=== PATIENT | female | born 1935 | race Caucasian/White ===

== ENCOUNTER → 2018-06-30 21:05 | Inpatient (IN) | payer MEDICARE, OTHER ==
[~2018-06-30 21:05] MED LIST: ACET-2154 PO; ALBU1.25 NEB; ALBU2.5V13 NEB; ALBU2.5V7 NEB; ALEN70TA3 PO; APIX2.5T PO; DICY10CA13 PO; DICY10CA21 PO; DIGO125T5 PO; DOCU-141 PO; FERR325T28 PO; FURO20TA4 PO; HYDR-3326 PO; IPRA0.2S48 NEB; IPRA0.2S6 NEB; LICO1POW2 PO; LINE600T PO; MAG355OR18 PO; MAG360OR83 PO; METO50TA16 PO; MORP1SYR2 IV; NYST5ORA PO; ONDA4AMP IVP; PANT40TA2 PO; PANT40VI IV; SENN-129 PO; SPIR25TA PO; SUCR1TAB PO; Sennosides/Docusate Sodium PO
== END | disposition short-term general hospital (02) | DRG 204 ==
PROVIDERS: ADMIT Physical Medicine & Rehabilitation Pain Medicine; ATTEND Physical Medicine & Rehabilitation Pain Medicine
DX: R06.03 Acute respiratory distress (principal)

== ENCOUNTER 2018-06-30 21:19 | Inpatient (IN) | payer MEDICARE, OTHER ==
[~2018-06-30] VITALS: Ht 147.3 cm; Wt 44.5 kg
--- NOTE | 2018-06-30 21:00 | NUR ---
Pt transferred from rehab with shortness of breath, placed on BIPAP with ordered settings of 12/5, Rate-14, FIO2-100%. In-line nebulizer treatment given as ordered. Tx tolerated well. Pt tolerating BIPAP settings well. Placed on continuos pulse ox. SpO2-99%. BIPAP alarm parameters checked, on and audible. Bag/valve/mask at bedside. Proper isolation protection equipment used.
--- NOTE | 2018-06-30 21:00 | NUR ---
nsg: Pt received fr acute rehab in respiratory distress. on non rebreather mask. lungs sound diminished. pt is awake, alert, and hyperventilating. received orders fr Dexter Tai NP. put on tele, NSR. family at the bedside. cont to monitor. pt has right upper quadrant drain, per son, the drainage is VRE. on contact isolation. RT, supervisor orchard, charge nurse, Zaire MONDRAGON at the bedside.
[~2018-06-30 21:19] MED LIST changes: -ACET-2154 PO; -ALBU1.25 NEB; -ALBU2.5V13 NEB; -ALBU2.5V7 NEB; -ALEN70TA3 PO; -APIX2.5T PO; -DICY10CA13 PO; -DICY10CA21 PO; -DIGO125T5 PO; -DOCU-141 PO; -FERR325T28 PO; -FURO20TA4 PO; +FUROSEMIDE 40 MG/4 ML VIAL ONE; -HYDR-3326 PO; -IPRA0.2S48 NEB; -IPRA0.2S6 NEB; -LICO1POW2 PO; -LINE600T PO; -MAG355OR18 PO; -MAG360OR83 PO; -METO50TA16 PO; -MORP1SYR2 IV; +MORPHINE SULFATE 4 MG/1 ML DISP.SYRIN ONE; -NYST5ORA PO; -ONDA4AMP IVP; -PANT40TA2 PO; -PANT40VI IV; -SENN-129 PO; -SPIR25TA PO; -SUCR1TAB PO; -Sennosides/Docusate Sodium PO
[2018-06-30] MEDS ORDERED: FUROSEMIDE 40 MG/4 ML VIAL IV ONE ×2 (21:45→22:15)
[2018-06-30] MEDS ORDERED: MORPHINE SULFATE 4 MG/1 ML DISP.SYRIN IV ONE (21:45)
[2018-06-30 21:52] VITALS: BP 158/90
[2018-06-30] MEDS ORDERED: MORPHINE SULFATE 4 MG/1 ML DISP.SYRIN IV STA (22:04)
[2018-06-30] MEDS ORDERED: IPRATROPIUM BROMIDE 0.5 MG/2.5 ML NEBU NEB SCH (22:15)
[2018-06-30] MEDS ORDERED: ALBUTEROL SULFATE 2.5 MG/3 ML NEBU NEB SCH (22:15)
--- NOTE | 2018-06-30 22:15 | NUR ---
nsg: attempted to insert f/c 2x, however, pt has thick, white discharge that enters the lumen. notified ASSEMBLY LINE UPHOLSTERER.
[2018-06-30] MEDS ORDERED: Z GUARD REMEDY PASTE 57 GM TUBE TOP PRN (23:00)
[2018-06-30] MEDS ORDERED: MORPHINE SULFATE 4 MG/1 ML DISP.SYRIN IV PRN (23:00)
[2018-06-30] MEDS ORDERED: MAGNESIUM HYDROXIDE 30 ML LIQUID UDC PO PRN (23:00)
[2018-06-30] MEDS ORDERED: ONDANSETRON 4 MG/2 ML VIAL IV PRN (23:00)
--- NOTE | 2018-06-30 23:15 | NUR ---
nsg: per RT, unable to obtain ABG bec site is limited only to right arm due to having dvt on left shoulder. however, RT unable to palpate strong pulse. notified GIANCARLO Tai. pt is stable, no distress noted.
[2018-06-30] MEDS: ONDANSETRON 4 MG/2 ML VIAL IV PRN (23:38)
--- NOTE | 2018-06-30 23:38 | NUR ---
nsg: pt awake, on bipap with 50% FIO2, O2 saturation is 97%. pt vomitted. medicated with zofran ivp. cont to monitor.
[2018-07-01] VITALS (12 sets, daily range): BP systolic 81–125; BP diastolic 39–74
[2018-07-01] MEDS ORDERED: PIPERACILLIN/TAZOBACTAM/D5W 3.375 G in PREMIXED 1 EACH IV SCH (01:00)
[2018-07-01] MEDS ORDERED: PIPERACILLIN/TAZO 2.25 GM VIAL ONE (01:01)
--- NOTE | 2018-07-01 03:00 | NUR ---
BIPAP settings changed to 10/5, due to Patient multiple episodes of throwing up. Changes tolerated well. No respiratory distress noted. SpO2-97%. Will continue to monitor.
[2018-07-01] MEDS: ALBUTEROL SULFATE 2.5 MG/3 ML NEBU NEB SCH ×6 (03:05→22:56)
[2018-07-01] MEDS: IPRATROPIUM BROMIDE 0.5 MG/2.5 ML NEBU NEB SCH ×6 (03:05→22:56)
[2018-07-01] MEDS ORDERED: ONDA4AMP IVP (03:21)
[2018-07-01] MEDS ORDERED: LINE600T PO (03:21)
[2018-07-01] MEDS ORDERED: ALBU1.25 NEB (03:21)
[2018-07-01] MEDS ORDERED: DICY10CA13 PO (03:21)
[2018-07-01] MEDS ORDERED: MAG360OR83 PO (03:21)
[2018-07-01] MEDS ORDERED: SPIR25TA PO (03:21)
[2018-07-01] MEDS ORDERED: SUCR1TAB PO (03:21)
[2018-07-01] MEDS ORDERED: PANT40VI IV (03:21)
[2018-07-01] MEDS ORDERED: ALBU2.5V13 NEB (03:21)
[2018-07-01] MEDS ORDERED: APIX2.5T PO (03:21)
[2018-07-01] MEDS ORDERED: ALEN70TA3 PO (03:21)
[2018-07-01] MEDS ORDERED: DOCU-141 PO (03:21)
[2018-07-01] MEDS ORDERED: IPRA0.2S48 NEB (03:21)
[2018-07-01] MEDS ORDERED: METO50TA16 PO (03:21)
[2018-07-01] MEDS ORDERED: NYST5ORA PO (03:21)
[2018-07-01] MEDS ORDERED: MORP1SYR2 IV (03:21)
[2018-07-01] MEDS ORDERED: ACET-2154 PO (03:21)
[2018-07-01] MEDS ORDERED: HYDR-3326 PO (03:21)
[2018-07-01] MEDS ORDERED: FERR325T28 PO (03:21)
--- NOTE | 2018-07-01 05:00 | NUR ---
nsg: pt comfortable sleeping. on bipap with FIO2 of 50%, O2 saturation is 97%. cont to monitor.
[2018-07-01] MEDS ORDERED: PIPERACILLIN/TAZOBACTAM/D5W 2.25 G in PREMIXED 1 EACH IV SCH (06:00)
[2018-07-01 06:48] LABS: BASOPHILS # (AUTO) 0.1 K/uL (0.0-8.0); BASOPHILS % (AUTO) 0.6 % (0.0-2.0); HEMATOCRIT 33.3 % (31.2-41.9); HEMOGLOBIN 10.9 g/dL (10.9-14.3); LYMPHOCYTES # (AUTO) 0.9 K/uL (20.0-40.0); LYMPHOCYTES % (AUTO) 8.3 % (20.5-51.5); MEAN CORPUSCULAR HEMOGLOBIN 34.3 uug (24.7-32.8); MEAN CORPUSCULAR HGB CONC 33 g/dL (32.3-35.6); MEAN CORPUSCULAR VOLUME 104.1 fL (75.5-95.3); MONOCYTES # (AUTO) 0.7 K/uL (2.0-10.0); MONOCYTES % (AUTO) 6.4 % (0.0-11.0); NEUTROPHILS # (AUTO) 9.3 K/uL (1.8-8.9); NEUTROPHILS % (AUTO) 84.7 % (38.5-71.5); PLATELET COUNT (AUTO) 253 K/uL (179-408); RED BLOOD CELL COUNT(AUTO) 3.19 MIL/uL (3.63-4.92)
--- NOTE | 2018-07-01 06:55 | NUR ---
nsg: changed picc line dressing. inserted f/c 14 fr.
[2018-07-01 07:11] LABS: CARBON DIOXIDE 22 mmol/L (21-32); CHLORIDE 104 mmol/L (98-107); CREATININE 1.8 mg/dL (0.6-1.3); GLUCOSE 125 mg/dL (74-106); PHOSPHOROUS 4.6 mg/dL (2.5-4.9); POTASSIUM 4.7 mmol/L (3.5-5.1); UREA NITROGEN, BLOOD 30 mg/dL (7-18)
--- NOTE | 2018-07-01 07:41 | NUR ---
PT RECEIVED ON BIPAP ON SETTINGS OF IPAP 10, EPAP 5, RATE 14, AND 40% FIO2. PT IS TOLERATING BIPAP MASK AND SETTINGS WELL. IN-LINE TX TOLERATED WELL, NO ADVERSE REACTION NOTED. POST ABG RESULTS, PT PLACED ON N/C 3LPM. PT IS LAYING COMFORTABLY, AWAKE AND ALERT. NO RESP. DISTRESS NOTED AT THIS TIME. RN IS NOTIFIED AND AWARE OF CHANGES. CONT. POX, AND BIPAP AT BEDSIDE. WILL CONTINUE TO MONITOR.
[2018-07-01] MEDS ORDERED: ACETAMINOPHEN 325 MG TABLET PO PRN (07:45)
[2018-07-01] MEDS ORDERED: MAG HYDROX/AL HYDROX/SIMETH 30 ML LIQUID UDC PO PRN (07:45)
[2018-07-01 08:08] LABS: ABG BASE EXCESS -4.3 mmol/L; ABG HCO3 20.3 mmol/L; ABG PCO2 35.5 mmHg (35.0-45.0); ABG PH 7.375 (7.350-7.450); ABG PO2 86.6 mmHg (75.0-100.0); ABG SITE RIGHT BRACHIAL; ABG TOTAL HEMOGLOBIN 11.4 G/dL (12.0-16.0); COHb 1.6 % (0.5-1.5); MetHb 0.1 % (0.0-1.5); O2Hb 94.9 % (94.0-97.0); VENT MODE BIPAP
[2018-07-01] MEDS: ONDANSETRON 4 MG/2 ML VIAL IV PRN (08:09)
[2018-07-01] MEDS: PANTOPRAZOLE SODIUM 40 MG VIAL IV SCH (08:09)
[2018-07-01] MEDS: FERROUS SULFATE 325 MG TABEC PO SCH (08:10)
[2018-07-01] MEDS: DICYCLOMINE HCL 10 MG CAPSULE PO SCH ×3 (08:10→17:07)
[2018-07-01] MEDS: SPIRONOLACTONE 25 MG TABLET PO SCH (08:10)
[2018-07-01] MEDS: SUCRALFATE 1 G TABLET PO SCH ×4 (08:10→20:40)
[2018-07-01] MEDS: DOCUSATE SODIUM 100 MG CAPSULE PO SCH ×3 (08:16→17:07)
[2018-07-01] MEDS: METOPROLOL TARTRATE 50 MG TABLET PO SCH ×2 (08:18→21:00)
--- NOTE | 2018-07-01 08:30 | NUR ---
Dexter AUTOMOBILE UPHOLSTERER APPRENTICE here to see patient. Notified of ABG and tapered bipap down 02 to N/C @3 liters saturation of 98% SNR on tele 70.s Right triple lumen patent on right upper arm bruising noted. F/c draing dark addi urine. Sent UA as ordered per DEXTER AUTOMOBILE UPHOLSTERER APPRENTICE. Pt waking up and able to tolerated am meds being crushed and given with pudding/apple sauce. Aspiration precaution implemented. Call light is within reach.
[2018-07-01] MEDS: APIXABAN 2.5 MG PO SCH ×2 (09:00→17:08)
[2018-07-01] MEDS: PIPERACILLIN/TAZOBACTAM/D5W 2.25 G in PREMIXED 1 EACH IV SCH ×3 (09:06→20:40)
[2018-07-01] MEDS: LINEZOLID 600 MG TABLET PO SCH ×2 (09:06→20:40)
[2018-07-01] MEDS: NYSTATIN SUSPENSION 5 ML LIQUID UDC PO SCH ×3 (09:06→17:07)
[2018-07-01] MEDS ORDERED: APIXABAN 5 MG TABLET PO ONE (09:30)
[2018-07-01] MEDS ORDERED: FUROSEMIDE 40 MG/4 ML VIAL IV ONE (11:00)
--- NOTE | 2018-07-01 11:00 | NUR ---
Dr pacheco saw patient. Sent UA as ordered per dr Burk. Call light is within reach.
--- NOTE | 2018-07-01 16:42 | NUR ---
Pt convert to uncontrolled afib to 120's. Pt asymptomatic b/p 105/48, resp 20. afebrile 98.0 Pt is in no acute distress. Call light is within reach. Will continue to monitor patient.
[2018-07-01] MEDS: ACETAMINOPHEN 325 MG TABLET PO PRN (17:10)
--- NOTE | 2018-07-01 17:42 | NUR ---
Call dr arreaga notified pt remains asymptomatic tele remains at uncontrolled atrial fib 130's fluctuates from hr of 110s - 130's. current b/p of 100/48- hr 130's, resp 18. New orders received and carried out from Dr Arreaga for amiodarone drip to be started.
[2018-07-01] MEDS ORDERED: AMIODARONE HCL IV 150 MG in IV DEXTROSE 5% 100 ML IV ONE (18:15)
--- NOTE | 2018-07-01 19:30 | NUR ---
Report received. Patient on contact isolation for VRE TTUbe drain as per report. RT at bedside for treatment. Patient AAO, cooperative. NAD noted. Daughters visiting. Plan of care discussed with them including pending Amiodarone drip; verbalized understanding. Assessment done. Patient responds well when talked to in Tagalog. Turned and repositioned. Addendum: 07/01/18 at 2307 by ZAC DORSEY RN Amended: Links added.
--- NOTE | 2018-07-01 20:05 | NUR ---
Spoke to Dr. Brisa nieves: hypotension and Amiodarone drip. Orders received. Amiodarone bolus cancelled. Addendum: 07/01/18 at 2309 by ZAC DORSEY RN Amended: Links added. Addendum: 07/01/18 at 2310 by ZAC DORSEY RN Amended: Links added. Addendum: 07/01/18 at 2311 by ZAC DORSEY RN Amended: Links added. Addendum: 07/01/18 at 2312 by ZAC DORSEY RN Amended: Links added.
[2018-07-01] MEDS: AMIODARONE HCL IV 900 MG in IV DEXTROSE 5% 482 ML IV PRN (20:17)
--- NOTE | 2018-07-01 20:17 | NUR ---
Amiodarone drip started at 1 mg/min via PICC line DEVYN. BPs 90's systole. Will monitor closely. Addendum: 07/01/18 at 2311 by ZAC DORSEY RN Amended: Links added. Addendum: 07/01/18 at 231 by ZAC DORSEY RN Amended: Links added. Addendum: 07/01/18 at 2312 by ZAC DORSEY RN Amended: Links added.
--- NOTE | 2018-07-01 22:56 | NUR ---
Pt asleep. No respiratory distress noted. HHN tx not given. RN Liza notified.
[2018-07-02] VITALS (8 sets, daily range): BP systolic 81–113; BP diastolic 25–56
--- NOTE | 2018-07-02 | NUR ---
Sleeping at intervals. Sat maintaining above 95% on 3 L NC. Addendum: 07/02/18 at 6 by ZAC DORSEY RN Amended: Links added. Addendum: 07/02/18 at 356 by ZAC DORSEY RN Amended: Links added. Addendum: 07/02/18 at 358 by ZAC DORSEY RN Amended: Links added.
[2018-07-02] MEDS: ACETAMINOPHEN 325 MG TABLET PO PRN ×2 (01:34→21:17)
--- NOTE | 2018-07-02 02:00 | NUR ---
Amiodarone drip decreased to 0.5 mg/min. BP=90/51. Patient asymptomatic. Will monitor closely. Addendum: 07/02/18 at 0359 by ZAC DORSEY RN Amended: Links added.
[2018-07-02] MEDS: PIPERACILLIN/TAZOBACTAM/D5W 2.25 G in PREMIXED 1 EACH IV SCH ×3 (03:29→14:30)
[2018-07-02] MEDS: IPRATROPIUM BROMIDE 0.5 MG/2.5 ML NEBU NEB SCH ×7 (04:02→23:14)
[2018-07-02] MEDS: ALBUTEROL SULFATE 2.5 MG/3 ML NEBU NEB SCH ×7 (04:02→23:14)
[2018-07-02 06:05] LABS: BASOPHILS # (AUTO) 0.1 K/uL (0.0-8.0); EOSINOPHILS # (AUTO) 0.1 K/uL (0.0-0.7); HEMATOCRIT 27.6 % (31.2-41.9); HEMOGLOBIN 9.3 g/dL (10.9-14.3); LYMPHOCYTES # (AUTO) 1.2 K/uL (20.0-40.0); LYMPHOCYTES % (AUTO) 19.6 % (20.5-51.5); MEAN CORPUSCULAR HEMOGLOBIN 35.1 uug (24.7-32.8); MEAN CORPUSCULAR HGB CONC 34 g/dL (32.3-35.6); MEAN CORPUSCULAR VOLUME 103.9 fL (75.5-95.3); MONOCYTES # (AUTO) 0.7 K/uL (2.0-10.0); MONOCYTES % (AUTO) 11.2 % (0.0-11.0); NEUTROPHILS # (AUTO) 4.1 K/uL (1.8-8.9); NEUTROPHILS % (AUTO) 66.2 % (38.5-71.5); PLATELET COUNT (AUTO) 207 K/uL (179-408); RED BLOOD CELL COUNT(AUTO) 2.65 MIL/uL (3.63-4.92); WHITE BLOOD COUNT (AUTO) 6.1 K/uL (3.8-11.8)
[2018-07-02 06:35] LABS: ALANINE AMINOTRANSFERASE 103 U/L (14-59); ALKALINE PHOSPHATASE 58 U/L (50-136); AMYLASE 53 U/L (25-115); ASPARTATE AMINOTRANSFERASE 49 U/L (15-37); CARBON DIOXIDE 23 mmol/L (21-32); CHLORIDE 102 mmol/L (98-107); CREATININE 1.7 mg/dL (0.6-1.3); GLUCOSE 112 mg/dL (74-106); LIPASE 223 U/L (73-393); MAGNESIUM 1.8 mg/dL (1.8-2.4); PHOSPHOROUS 2.8 mg/dL (2.5-4.9); POTASSIUM 3.6 mmol/L (3.5-5.1); TOTAL PROTEIN, SERUM 5.7 g/dL (6.4-8.2); UREA NITROGEN, BLOOD 32 mg/dL (7-18)
[2018-07-02] MEDS ORDERED: BARIUM SULFATE 148 GM SUSP.RECON PO ONE (07:43)
[2018-07-02] MEDS ORDERED: BARIUM SULFATE 240 ML ORAL.SUSP PO ONE (07:43)
[2018-07-02] MEDS: SUCRALFATE 1 G TABLET PO SCH ×4 (09:00→21:15)
[2018-07-02] MEDS: DICYCLOMINE HCL 10 MG CAPSULE PO SCH ×3 (09:00→16:16)
[2018-07-02] MEDS: METOPROLOL TARTRATE 50 MG TABLET PO SCH ×2 (09:00→21:00)
[2018-07-02] MEDS: PANTOPRAZOLE SODIUM 40 MG VIAL IV SCH (09:00)
[2018-07-02] MEDS: FERROUS SULFATE 325 MG TABEC PO SCH (09:01)
[2018-07-02] MEDS: SPIRONOLACTONE 25 MG TABLET PO SCH (09:01)
[2018-07-02] MEDS: NYSTATIN SUSPENSION 5 ML LIQUID UDC PO SCH ×3 (09:01→16:16)
[2018-07-02] MEDS: APIXABAN 2.5 MG PO SCH ×2 (09:02→16:18)
[2018-07-02] MEDS: LINEZOLID 600 MG TABLET PO SCH ×2 (09:02→21:15)
[2018-07-02 09:22] LABS: ABG BASE EXCESS -3.2 mmol/L; ABG HCO3 20.6 mmol/L; ABG PCO2 32.4 mmHg (35.0-45.0); ABG PH 7.421 (7.350-7.450); ABG PO2 109.3 mmHg (75.0-100.0); ABG SITE RIGHT RADIAL; ABG TOTAL HEMOGLOBIN 10.2 G/dL (12.0-16.0); MetHb 0.1 % (0.0-1.5); VENT MODE Nasal Cannula
[2018-07-02] MEDS: DOCUSATE SODIUM 100 MG CAPSULE PO SCH (09:25)
[2018-07-02] MEDS: SENNOSIDES/DOCUSATE SODIUM TABLET PO SCH (12:49)
--- NOTE | 2018-07-02 13:56 | NUR ---
to Radiology dept for video swallow study Addendum: 07/02/18 at 1356 by SOCO STUBBS RN Amended: Links added.
--- NOTE | 2018-07-02 14:23 | NUR ---
back to room post video swallow study. Addendum: 07/02/18 at 1423 by SOCO STUBBS RN Amended: Links added.
--- NOTE | 2018-07-02 15:00 | NUR ---
seen by dr mandel. report given. will give digoxin and continue amiodarone for another day. Addendum: 07/02/18 at 1645 by SOCO STUBBS RN Amended: Links added. Addendum: 07/02/18 at 1647 by SOCO STUBBS RN Amended: Links added.
--- NOTE | 2018-07-02 15:45 | NUR ---
digoxin 0.25 mcg given IV at. HR 120/mn atrial fib Addendum: 07/02/18 at 1647 by SOCO STUBBS RN Amended: Links added.
[2018-07-02] MEDS: DIGOXIN 500 MCG/2 ML AMP IV SCH ×2 (16:14→21:16)
--- NOTE | 2018-07-02 16:44 | NUR ---
seen by dr currie Addendum: 07/02/18 at 1644 by SOCO STUBBS RN Amended: Liat added. Addendum: 07/02/18 at 1645 by SOCO STUBBS RN Amended: Liat added. Addendum: 07/02/18 at 1647 by SOCO STUBBS RN Amended: Links added.
--- NOTE | 2018-07-02 19:21 | NUR ---
report given to [email or web address] Addendum: 07/02/18 at 1921 by SOCO STUBBS RN Amended: Links added.
--- NOTE | 2018-07-02 19:30 | NUR ---
Report received. Patient AAO, daughters at bedside; on going treatments and plan of care discussed with them. On contact isolation for VRE Ttube drain. NAD noted. On continuous Amiodarone drip at 0.5 mg/min via PICC line DEVYN. Assessment completed. Tele: Shyann, rate 100's-110's. Addendum: 07/03/18 at 0137 by ZAC DORSEY RN Amended: Links added.
[2018-07-02] MEDS: AMIODARONE HCL IV 900 MG in IV DEXTROSE 5% 482 ML IV PRN (19:59)
--- NOTE | 2018-07-02 21:16 | NUR ---
Digoxin 0.25 mg IV given; NC=348 still Afib. Tylenol po given for headache. Addendum: 07/03/18 at 0145 by ZAC DORSEY RN Amended: Links added. Addendum: 07/03/18 at 0147 by ZAC DORSEY RN Amended: Links added. Addendum: 07/03/18 at 0147 by ZAC DORSEY RN Amended: Links added.
--- NOTE | 2018-07-02 22:00 | NUR ---
Fluids from T Tube drain obtained and sent to lab. Addendum: 07/02/18 at 2215 by ZAC DORSEY RN Amended: Links added.
[2018-07-02 23:38] LABS: *BILIRUBIN,URIN NEGATIVE (NEGATIVE); *BLOOD, URINE 1+ (NEGATIVE); *CLARITY,URINE CLEAR (CLEAR); *COLOR,URINE YELLOW (YELLOW); *KETONES,URINE NEGATIVE (NEGATIVE); *PROTEIN,URINE NEGATIVE (NEGATIVE); *UROBILINOGEN,URINE 0.2 E.U./dl (NORMAL); LEUKOCYTE ESTERASE ,URINE NEGATIVE (NEGATIVE); NITRITE, URINE NEGATIVE (NEGATIVE); UGLUCOSE NEGATIVE (NEGATIVE)
[2018-07-02 23:47] LABS: *CREATININE,URINE 50.7 mg/dL (30-125); *URINE TOTAL PROTEIN RANDOM 11.5 mg/dL (<150/24HR)
[2018-07-03 00:06] LABS: BACTERIA,URINE NONE SEEN /HPF (NONE SEEN); SQUAMOUS EPITHELIAL CELL,UR FEW /HPF (NONE SEEN); WBC,URINE 0-3 /HPF (0-3)
[2018-07-03 00:07] LABS: URIC ACID CRYSTALS,URINE MANY /HPF (NONE SEEN); YEAST,URINE FEW /HPF (NONE SEEN)
[2018-07-03] MEDS: ALBUTEROL SULFATE 2.5 MG/3 ML NEBU NEB SCH ×6 (03:50→23:05)
[2018-07-03] MEDS: IPRATROPIUM BROMIDE 0.5 MG/2.5 ML NEBU NEB SCH ×6 (03:50→23:05)
[2018-07-03] MEDS: DIGOXIN 500 MCG/2 ML AMP IV SCH (03:54)
[2018-07-03 04:00] VITALS: BP 94/40
[2018-07-03 06:04] LABS: BASOPHILS # (AUTO) 0.1 K/uL (0.0-8.0); BASOPHILS % (AUTO) 1.2 % (0.0-2.0); EOSINOPHILS # (AUTO) 0.2 K/uL (0.0-0.7); EOSINOPHILS % (AUTO) 2.7 % (0.0-7.0); HEMATOCRIT 27.2 % (31.2-41.9); LYMPHOCYTES % (AUTO) 15.2 % (20.5-51.5); MEAN CORPUSCULAR HEMOGLOBIN 34.6 uug (24.7-32.8); MEAN CORPUSCULAR HGB CONC 33 g/dL (32.3-35.6); MEAN CORPUSCULAR VOLUME 104.1 fL (75.5-95.3); MONOCYTES # (AUTO) 0.6 K/uL (2.0-10.0); MONOCYTES % (AUTO) 9.7 % (0.0-11.0); NEUTROPHILS # (AUTO) 4.5 K/uL (1.8-8.9); NEUTROPHILS % (AUTO) 71.2 % (38.5-71.5); PLATELET COUNT (AUTO) 199 K/uL (179-408); RED BLOOD CELL COUNT(AUTO) 2.61 MIL/uL (3.63-4.92); WHITE BLOOD COUNT (AUTO) 6.3 K/uL (3.8-11.8)
[2018-07-03 06:18] LABS: CARBON DIOXIDE 26 mmol/L (21-32); CHLORIDE 104 mmol/L (98-107); GLUCOSE 99 mg/dL (74-106); MAGNESIUM 1.8 mg/dL (1.8-2.4); PHOSPHOROUS 2.1 mg/dL (2.5-4.9); POTASSIUM 4.4 mmol/L (3.5-5.1); UREA NITROGEN, BLOOD 20 mg/dL (7-18)
[2018-07-03] MEDS: PANTOPRAZOLE SODIUM 40 MG TABLET.DR PO SCH (06:35)
[2018-07-03] MEDS: SUCRALFATE 1 G TABLET PO SCH ×4 (06:36→21:07)
--- NOTE | 2018-07-03 07:08 | NUR ---
Remains in Afib with controlled rate. Amiodarone drip at 0.5 mg/min. AAO. Sat above 94% on 2 L NC. R cholecystostomy tube site dry and intact. Contact isolation maintained.
--- NOTE | 2018-07-03 08:00 | NUR ---
RECIEVED PT LYING IN BED, AWAKE, ALERT AND ORIENTED. VERY PLEASANT LADY. VERY COOPERATIVE AND NO C/O PAIN. HR IS CONTROLLED AFIB. ON AMIODARONE DRIP AT 0.5MG /HR. PICC LINE ON THE RIGHT UPPER ARM PATENT AND INTACT.. PT IS SKINNY AND EATS VERY LITTLE. COUGHING ON AND OFF PRODUCTIVELY WHITISH PHLEGM. O2 ON 2LNC, SATURATING AT 98%. VSS.
[2018-07-03] MEDS: FERROUS SULFATE 325 MG TABEC PO SCH (09:19)
[2018-07-03] MEDS: DICYCLOMINE HCL 10 MG CAPSULE PO SCH ×3 (09:19→16:44)
[2018-07-03] MEDS: SPIRONOLACTONE 25 MG TABLET PO SCH (09:19)
[2018-07-03] MEDS: SENNOSIDES/DOCUSATE SODIUM TABLET PO SCH (09:19)
[2018-07-03] MEDS: LINEZOLID 600 MG TABLET PO SCH ×2 (09:19→21:09)
[2018-07-03] MEDS: NYSTATIN SUSPENSION 5 ML LIQUID UDC PO SCH ×3 (09:27→16:43)
[2018-07-03] MEDS: METOPROLOL TARTRATE 50 MG TABLET PO SCH ×2 (09:44→21:11)
[2018-07-03 09:55] VITALS: BP 116/52
--- NOTE | 2018-07-03 10:30 | NUR ---
PT AMBULATED ABOUT 30FT AND TOLERATED WELL.
[2018-07-03 11:49] VITALS: BP 113/49
--- NOTE | 2018-07-03 12:00 | NUR ---
SPEECH THERAPIST DID SWALLOW EVAL AT THE BEDSIDE. PT ABLE TO SWALLOW WELL .
[2018-07-03] MEDS: APIXABAN 2.5 MG PO SCH ×2 (12:45→18:23)
--- NOTE | 2018-07-03 14:00 | NUR ---
SEEN AND EXAMINED BY DR EMELY MCKEON NO ORDER.
[2018-07-03] MEDS ORDERED: NEUTRA PHOS PACKET PO ONE (15:30)
[2018-07-03 16:48] VITALS: BP 105/51
[2018-07-03 20:00] VITALS: BP 97/51
--- NOTE | 2018-07-03 20:00 | NUR ---
RECEIVED PT ALERT & ORIENTED X3,C/O ABD. PAIN SCALE 2/10. TYLENOL 650MG PO GIVEN PO. ON O2 @ 2L NC W/ O2 SAT OF 98%. PICC LINE ON DEVYN ALL PORTS ARE PATENT. AMIODARONE DRIP @ 0.5MG /HR.. REPOSITIONED ON HER SIDE W/ HOB ELEVATED. NOT IN ANY DISTRESS.
[2018-07-03] MEDS: ACETAMINOPHEN 325 MG TABLET PO PRN (20:14)
--- NOTE | 2018-07-03 22:00 | NUR ---
HS CARE DONE. NO DIFFICULTY OF SWALLOWING NOTED. DENIES PAIN THIS TIME.
[2018-07-04 00:31] VITALS: BP_SYST 105; BP_SYST 97; BP_DIAS 51; BP_DIAS 61
--- NOTE | 2018-07-04 02:00 | NUR ---
AWAKE.UP IN COMMODE HAD A GOOD BOWEL MOVEMENT. DARRYL VARGAS.
[2018-07-04] MEDS: IPRATROPIUM BROMIDE 0.5 MG/2.5 ML NEBU NEB SCH ×6 (02:36→23:07)
[2018-07-04] MEDS: ALBUTEROL SULFATE 2.5 MG/3 ML NEBU NEB SCH ×6 (02:36→23:07)
[2018-07-04 04:00] VITALS: BP 127/54
[2018-07-04 05:25] LABS: CARBON DIOXIDE 28 mmol/L (21-32); CHLORIDE 104 mmol/L (98-107); CREATININE 0.8 mg/dL (0.6-1.3); GLUCOSE 112 mg/dL (74-106); PHOSPHOROUS 2.5 mg/dL (2.5-4.9); POTASSIUM 4.6 mmol/L (3.5-5.1); UREA NITROGEN, BLOOD 18 mg/dL (7-18)
[2018-07-04] MEDS ORDERED: NORMAL SALINE FLUSH 10 ML DISP.SYRIN IV PRN (06:00)
--- NOTE | 2018-07-04 06:00 | NUR ---
SLEEPING AT THIS TIME. C-SCOPE AFIB CONTROLLED. BP STABLE.
[2018-07-04] MEDS: NORMAL SALINE FLUSH 10 ML DISP.SYRIN IV SCH ×3 (06:07→20:36)
[2018-07-04] MEDS: PANTOPRAZOLE SODIUM 40 MG TABLET.DR PO SCH (07:07)
[2018-07-04 08:00] VITALS: BP 133/48
[2018-07-04] MEDS: METOPROLOL TARTRATE 50 MG TABLET PO SCH ×2 (08:41→20:35)
[2018-07-04] MEDS: FUROSEMIDE 20 MG TABLET PO SCH (08:41)
[2018-07-04] MEDS: SPIRONOLACTONE 25 MG TABLET PO SCH (08:41)
[2018-07-04] MEDS: NYSTATIN SUSPENSION 5 ML LIQUID UDC PO SCH ×3 (08:41→16:45)
[2018-07-04] MEDS: FERROUS SULFATE 325 MG TABEC PO SCH (08:41)
[2018-07-04] MEDS: LINEZOLID 600 MG TABLET PO SCH ×2 (08:42→20:35)
[2018-07-04] MEDS: DIGOXIN 125 MCG TABLET PO SCH (08:42)
[2018-07-04] MEDS: SUCRALFATE 1 G TABLET PO SCH ×4 (08:43→20:36)
[2018-07-04] MEDS: APIXABAN 2.5 MG PO SCH ×2 (08:43→16:44)
[2018-07-04] MEDS: DICYCLOMINE HCL 10 MG CAPSULE PO SCH ×3 (09:35→16:45)
[2018-07-04] MEDS: SENNOSIDES/DOCUSATE SODIUM TABLET PO SCH (09:35)
--- NOTE | 2018-07-04 11:30 | NUR ---
Pt left the unit and transferred to #[id number]. All belongings reviewed and brought with the pt. Pt stable and nad noted upon transferring.
[2018-07-04 12:00] VITALS: BP 130/50
--- NOTE | 2018-07-04 12:15 | NUR ---
Received report from the charge nurse. Pt is AAO, no immediate s/sx of distress or discomfort. Report given the the patient is not to have BP taken in either upper extremities:PICC line on the right upper arm and positive for a DVT on the left upper arm. Pt stated she had abdomen discomfort
[2018-07-04] MEDS: ACETAMINOPHEN 325 MG TABLET PO PRN (12:23)
--- NOTE | 2018-07-04 12:40 | NUR ---
Pt was compliant with early afternoon medications. Tylenol given for abdomen discomfort
[2018-07-04 15:25] VITALS: BP 125/55
--- NOTE | 2018-07-04 17:00 | NUR ---
Sign placed in the room not to have BP taken on bilateral upper extremities. Daughter request a [employer] nurse for night cleaner
--- NOTE | 2018-07-04 18:58 | NUR ---
Pt has been compliant with medication and nursing care. No immediate s/sx of SOB, pain, distress or discomfort
[2018-07-04 20:15] VITALS: BP 126/65
[2018-07-05] MEDS: IPRATROPIUM BROMIDE 0.5 MG/2.5 ML NEBU NEB SCH ×6 (02:30→20:01)
[2018-07-05] MEDS: ALBUTEROL SULFATE 2.5 MG/3 ML NEBU NEB SCH ×6 (02:30→20:01)
[2018-07-05 05:01] VITALS: BP 111/42
[2018-07-05] MEDS: NORMAL SALINE FLUSH 10 ML DISP.SYRIN IV SCH ×2 (06:49→14:00)
[2018-07-05] MEDS: PANTOPRAZOLE SODIUM 40 MG TABLET.DR PO SCH (06:49)
[2018-07-05] MEDS: SUCRALFATE 1 G TABLET PO SCH ×3 (06:49→16:53)
--- NOTE | 2018-07-05 07:30 | NUR ---
Awake, alert, oriented x 4, on moderate high back rest. On room air, not in distress.
[2018-07-05] MEDS: DICYCLOMINE HCL 10 MG CAPSULE PO SCH ×3 (08:55→16:53)
[2018-07-05] MEDS: SPIRONOLACTONE 25 MG TABLET PO SCH (08:55)
[2018-07-05] MEDS: APIXABAN 2.5 MG PO SCH ×2 (08:55→16:53)
[2018-07-05] MEDS: FERROUS SULFATE 325 MG TABEC PO SCH (08:55)
[2018-07-05] MEDS: FUROSEMIDE 20 MG TABLET PO SCH (08:56)
[2018-07-05] MEDS: DIGOXIN 125 MCG TABLET PO SCH (08:56)
[2018-07-05] MEDS: NYSTATIN SUSPENSION 5 ML LIQUID UDC PO SCH ×3 (08:57→16:53)
[2018-07-05] MEDS: SENNOSIDES/DOCUSATE SODIUM TABLET PO SCH (08:57)
[2018-07-05] MEDS: LINEZOLID 600 MG TABLET PO SCH (08:57)
[2018-07-05] MEDS: METOPROLOL TARTRATE 50 MG TABLET PO SCH (08:57)
[2018-07-05] MEDS ORDERED: ALENDRONATE SODIUM 70 MG TABLET PO SCH (09:00)
--- NOTE | 2018-07-05 10:00 | NUR ---
Assisted out of bed by PT, ambulated in the room, tolerated.
[2018-07-05] MEDS ORDERED: PANT40TA2 PO (10:56)
[2018-07-05] MEDS ORDERED: DICY10CA21 PO (10:56)
[2018-07-05] MEDS ORDERED: LINE600T PO (10:56)
[2018-07-05] MEDS ORDERED: ALBU2.5V7 NEB (10:56)
[2018-07-05] MEDS ORDERED: IPRA0.2S6 NEB (10:56)
[2018-07-05] MEDS ORDERED: SPIR25TA PO (10:56)
[2018-07-05] MEDS ORDERED: NYST5ORA PO (10:56)
[2018-07-05] MEDS ORDERED: Sennosides/Docusate Sodium PO (10:56)
[2018-07-05] MEDS ORDERED: APIX2.5T PO (10:56)
[2018-07-05] MEDS ORDERED: FERR325T28 PO (10:56)
[2018-07-05] MEDS ORDERED: SUCR1TAB PO (10:56)
[2018-07-05] MEDS ORDERED: DIGO125T5 PO (10:56)
[2018-07-05] MEDS ORDERED: FURO20TA4 PO (10:56)
[2018-07-05] MEDS ORDERED: METO50TA16 PO (10:56)
[2018-07-05 11:00] VITALS: BP 132/69
--- NOTE | 2018-07-05 14:00 | NUR ---
Jennings catheter removed. Voided freely after.
[2018-07-05 15:40] VITALS: BP 130/52
--- NOTE | 2018-07-05 17:49 | NUR ---
With discharge order to ARU. Daughter Keeley aware. Report given to Ai. Discharged per wheelchair in fair condition, not in distress, afebrile. Triple lumen Central line intact and patent. Biliary drain/ T tube intact.
[2018-07-05] MEDS ORDERED: SENN-129 PO (19:18)
[2018-07-05] MEDS ORDERED: MAG355OR18 PO (19:18)
[2018-07-05] MEDS ORDERED: ACET-2154 PO (19:18)
[2018-07-05] MEDS ORDERED: LICO1POW2 PO (19:18)
== END 2018-07-05 19:00 | DRG 177 ==
LOC: DOU 21:19 → GPSOV 21:19 → UNDOADMIN 21:19 → TELE-TD 21:19 → TELE 07-03 12:29 → TELE-TD 07-03 12:51 → CCU 07-03 17:29 → MED 07-04 11:37 → TELE 07-04 11:43 → MED 07-05 09:00
PROVIDERS: ADMIT Nurse Practitioner Acute Care; ATTEND Nurse Practitioner Acute Care
PROC: 5A09357 Assistance with Respiratory Ventilation, Less than 24 Consecutive Hours, Continuous Positive Airway Pressure (ICD-10-PCS; principal; 2018-06-30)
DX: J15.6 Pneumonia due to other Gram-negative bacteria (principal); J96.02 Acute respiratory failure with hypercapnia; G93.41 Metabolic encephalopathy; N17.0 Acute kidney failure with tubular necrosis; E43 Unspecified severe protein-calorie malnutrition; I50.33 Acute on chronic diastolic (congestive) heart failure; J96.01 Acute respiratory failure with hypoxia; I13.0 Hypertensive heart and chronic kidney disease with heart failure and stage 1 through stage 4 chronic kidney disease, or unspecified chronic kidney disease; D68.59 Other primary thrombophilia; N39.0 Urinary tract infection, site not specified; R64 Cachexia; K86.1 Other chronic pancreatitis; N18.9 Chronic kidney disease, unspecified; E11.22 Type 2 diabetes mellitus with diabetic chronic kidney disease; D63.8 Anemia in other chronic diseases classified elsewhere; E03.9 Hypothyroidism, unspecified; E78.5 Hyperlipidemia, unspecified; I25.2 Old myocardial infarction; K21.9 Gastro-esophageal reflux disease without esophagitis; Z86.73 Personal history of transient ischemic attack (TIA), and cerebral infarction without residual deficits; Z86.718 Personal history of other venous thrombosis and embolism; Z79.01 Long term (current) use of anticoagulants; I48.0 Paroxysmal atrial fibrillation; M62.84 Sarcopenia; Z68.20 Body mass index [BMI] 20.0-20.9, adult; K27.9 Peptic ulcer, site unspecified, unspecified as acute or chronic, without hemorrhage or perforation; K29.00 Acute gastritis without bleeding
CPT/HCPCS: 36415; 36600; 70030-TC; 71045; 74230; 76770; 83690; 83735; 84100; 84156; 84300; 85025; 87040; 87070; 87077; 87205; 92526; 92610; 92611; 93307; 94640; 94660; 94664; 97110; 97116; 97530; C9113; J0282; J1160; J1940; J2270; J2405; J2543; J3490; J3590; J7050; J7060

== ENCOUNTER 2018-07-05 16:31 | Inpatient (IN) | payer MEDICARE, OTHER ==
[~2018-07-05] VITALS: Ht 147.3 cm; Wt 44.5 kg
[~2018-07-05 16:31] MED LIST changes: +ACET-2154 PO; +ALBU1.25 NEB; +ALBU2.5V13 NEB; +ALBU2.5V7 NEB; +ALEN70TA3 PO; +APIX2.5T PO; +DICY10CA13 PO; +DICY10CA21 PO; +DIGO125T5 PO; +DOCU-141 PO; +FERR325T28 PO; +FURO20TA4 PO; -FUROSEMIDE 40 MG/4 ML VIAL ONE; +HYDR-3326 PO; +IPRA0.2S48 NEB; +IPRA0.2S6 NEB; +LINE600T PO; +MAG360OR83 PO; +METO50TA16 PO; +MORP1SYR2 IV; -MORPHINE SULFATE 4 MG/1 ML DISP.SYRIN ONE; +NYST5ORA PO; +ONDA4AMP IVP; +PANT40TA2 PO; +PANT40VI IV; +SPIR25TA PO; +SUCR1TAB PO; +Sennosides/Docusate Sodium PO
--- NOTE | 2018-07-05 18:00 | NUR ---
Admitted from [facility] 2nd floor per wheelchair accompanied by SEWER with diagnosis of respiratory failure. Awake, alert x4. No SOB noted, not in any form of distress. No pain noted. Vital signs stable. Informed Dr Rivas of admission, orders obtained. Routine admission care done. Informed family and patient about rehab therapy, unit and equipment.
[2018-07-05] MEDS ORDERED: MAGNESIUM HYDROXIDE 30 ML LIQUID UDC PO PRN (18:30)
[2018-07-05] MEDS ORDERED: Z GUARD REMEDY PASTE 57 GM TUBE TOP PRN (18:30)
[2018-07-05] MEDS ORDERED: SENN-129 PO (19:18)
[2018-07-05] MEDS ORDERED: ACET-2154 PO (19:18)
[2018-07-05] MEDS ORDERED: LICO1POW2 PO (19:18)
[2018-07-05] MEDS ORDERED: MAG355OR18 PO (19:18)
--- NOTE | 2018-07-05 19:25 | NUR ---
Informed Serenity Cortez/MEDICAL INFORMATION OFFICER of new admission and requested medication reconciliation. MEDICAL INFORMATION OFFICER confirmed and said OK.
[2018-07-05 19:30] VITALS: BP 133/58
[2018-07-05 19:58] VITALS: BP 121/42
[2018-07-06] MEDS ORDERED: ONDANSETRON 4 MG/2 ML VIAL IV PRN (01:00)
[2018-07-06] MEDS ORDERED: ZOLPIDEM 5 MG TABLET PO PRN (01:00)
[2018-07-06] MEDS ORDERED: ACETAMINOPHEN 325 MG TABLET PO PRN ×2 (01:00→08:45)
[2018-07-06] MEDS ORDERED: Z GUARD REMEDY PASTE 57 GM TUBE TOP PRN (01:00)
[2018-07-06] MEDS ORDERED: MAGNESIUM HYDROXIDE 30 ML LIQUID UDC PO PRN (01:00)
--- NOTE | 2018-07-06 01:29 | NUR ---
awake alert and oriented. patient admitted for acute respiratory failure. GEAR CUTTING MACHINE OPERATOR Dana aware of patient's admission and also meds for reconciliation. She says she will take care of it. Informed her for med reconciliation approximately @2200. Needs attended. @0130 placed a call to [employer] and weaving loom operator says its Dr Burr whose loan consultant, made him aware that medication need to be reconcile. Was told he is not gonna do it now will do in am.
[2018-07-06 04:30] VITALS: BP 108/58
--- NOTE | 2018-07-06 04:45 | NUR ---
admitted from med-surg with diagnosis of acute respiratory failure. aaox4 pleasant and cooperative. VSS. ambulates to the BR with supervision. patient has a T-tube intact on the lower quad of her abdomen which is draining brownish yellow drainage. denies any pain nor any discomfort. on contact isolation for VRE on the T-tube. wears hearing aid. patient has a right triple lumen central line. making needs known. siderails up for safety. Dr Rivas aware of patient's admission.
[2018-07-06] MEDS: PANTOPRAZOLE SODIUM 40 MG TABLET.DR PO SCH (06:07)
--- NOTE | 2018-07-06 06:54 | NUR ---
end of shift report: slept most of the shift. OOB to bedside commode with supervision. voiding well in good amount.denies any pain nor any discomfort. BM noted this shift.
[2018-07-06 08:00] VITALS: BP 132/60
[2018-07-06] MEDS ORDERED: MAG HYDROX/AL HYDROX/SIMETH 30 ML LIQUID UDC PO SCH (08:45)
[2018-07-06] MEDS: SPIRONOLACTONE 25 MG TABLET PO SCH (09:52)
[2018-07-06] MEDS: FERROUS SULFATE 325 MG TABEC PO SCH (09:53)
[2018-07-06] MEDS: DIGOXIN 125 MCG TABLET PO SCH (09:53)
[2018-07-06] MEDS: FUROSEMIDE 20 MG TABLET PO SCH (09:54)
[2018-07-06] MEDS: METOPROLOL TARTRATE 50 MG TABLET PO SCH ×2 (09:55→21:00)
[2018-07-06] MEDS: NYSTATIN SUSPENSION 5 ML LIQUID UDC PO SCH ×3 (09:59→17:55)
[2018-07-06] MEDS: [UNRECOGNIZED DRUG - OTHER] PO SCH ×2 (10:04→17:49)
[2018-07-06] MEDS: DICYCLOMINE HCL 10 MG CAPSULE PO SCH ×3 (10:16→17:49)
[2018-07-06] MEDS: LINEZOLID 600 MG TABLET PO SCH ×2 (10:17→21:32)
[2018-07-06] MEDS: IPRATROPIUM BROMIDE 0.5 MG/2.5 ML NEBU NEB SCH ×4 (11:43→23:01)
[2018-07-06] MEDS: ALBUTEROL SULFATE 2.5 MG/3 ML NEBU NEB SCH ×4 (11:43→23:01)
[2018-07-06] MEDS: SUCRALFATE 1 G TABLET PO SCH ×3 (12:15→21:32)
[2018-07-06 16:03] VITALS: BP 121/42
[2018-07-06] MEDS: DOCUSATE SODIUM 100 MG CAPSULE PO SCH (21:32)
[2018-07-06 21:46] VITALS: BP 109/55
--- NOTE | 2018-07-06 21:53 | NUR ---
OOB in wheelchair when received. Family in with patient. T-tube intact draining dark drainage moderate in amount. Denies any pain nor any discomfort. Will monitor patient. Needs attended. Tolerated po meds well. Lopressor held BP 109/55 HR 68. Voiding in bedside commode. BM noted this shift.
[2018-07-07] MEDS: IPRATROPIUM BROMIDE 0.5 MG/2.5 ML NEBU NEB SCH ×6 (03:35→22:51)
[2018-07-07] MEDS: ALBUTEROL SULFATE 2.5 MG/3 ML NEBU NEB SCH ×6 (03:35→22:51)
[2018-07-07 05:20] VITALS: BP 108/47
[2018-07-07] MEDS: PANTOPRAZOLE SODIUM 40 MG TABLET.DR PO SCH (06:25)
[2018-07-07] MEDS: SUCRALFATE 1 G TABLET PO SCH ×4 (06:32→21:25)
--- NOTE | 2018-07-07 06:38 | NUR ---
DUPLICATE ORDER FOR PROTONIX ALREADY GAVE ONE, WILL LET PHARMACY KNOW ABOUT IT
[2018-07-07] MEDS: DGL PO SCH ×3 (06:40→16:35)
[2018-07-07] MEDS ORDERED: PANTOPRAZOLE SODIUM 40 MG TABLET.DR PO SCH (07:00)
--- NOTE | 2018-07-07 07:02 | NUR ---
end of shift report: slept well most of the shift. aaox4 oob to bedside commode. voiding well. T-tube intact draining blackish drainage. I & O monitor. denies any pain nor any discomfort.
[2018-07-07] MEDS: FUROSEMIDE 20 MG TABLET PO SCH (09:10)
[2018-07-07] MEDS: METOPROLOL TARTRATE 50 MG TABLET PO SCH ×2 (09:11→21:00)
[2018-07-07] MEDS: FERROUS SULFATE 325 MG TABEC PO SCH (09:11)
[2018-07-07] MEDS: SPIRONOLACTONE 25 MG TABLET PO SCH (09:11)
[2018-07-07] MEDS: DIGOXIN 125 MCG TABLET PO SCH (09:12)
[2018-07-07] MEDS: NYSTATIN SUSPENSION 5 ML LIQUID UDC PO SCH ×3 (09:13→16:36)
[2018-07-07] MEDS: [UNRECOGNIZED DRUG - OTHER] PO SCH ×2 (09:14→16:36)
[2018-07-07] MEDS: DICYCLOMINE HCL 10 MG CAPSULE PO SCH ×3 (09:14→16:36)
[2018-07-07] MEDS: LINEZOLID 600 MG TABLET PO SCH ×2 (09:15→21:25)
[2018-07-07 15:23] VITALS: BP 105/50
[2018-07-07 20:00] VITALS: BP 122/46
--- NOTE | 2018-07-07 20:05 | NUR ---
Patient received sitting in wheelchair, AAO X4. Able to make needs known. No sign of acute distress or SOB noted. Family at bedside. Patient has a T-tube intact on the RT side of her abdomen which is draining brownish yellow drainage. No complain of pain. On contact isolation for VRE on the T-tube. Has hearing aid. Patient has a triple lumen central line on her RT arm. V/S checked, brief assessment done. Safety measures maintained. Bed brake and alarm on, side rails upx2. Call light and personal belonging within reach. Continue to monitor.
[2018-07-07] MEDS: DOCUSATE SODIUM 100 MG CAPSULE PO SCH (21:25)
[2018-07-08] MEDS: ALBUTEROL SULFATE 2.5 MG/3 ML NEBU NEB SCH ×6 (03:14→23:27)
[2018-07-08] MEDS: IPRATROPIUM BROMIDE 0.5 MG/2.5 ML NEBU NEB SCH ×6 (03:14→23:27)
[2018-07-08] MEDS: PANTOPRAZOLE SODIUM 40 MG TABLET.DR PO SCH (06:50)
[2018-07-08] MEDS: SUCRALFATE 1 G TABLET PO SCH ×4 (06:50→21:20)
[2018-07-08] MEDS: DGL PO SCH ×3 (06:50→16:24)
[2018-07-08 07:13] VITALS: BP 120/33
--- NOTE | 2018-07-08 07:20 | NUR ---
End of shift note, Patient has a good sleep last night. No acute distress or SOB was noted. No complain of pain. Medication given as ordered. The patient has low BP at 2100, HR: 57, her schedule Lopressor 50 mg tab was held. 100 ML brownish yellow drainage was emptied from T-Tube. Safety measures maintained. Keep her clean and comfortable. Bed in low position, alarm and brake on. Call light and personal belongings within reach. Continue to monitor and will endorse to day shift nurse.
[2018-07-08] MEDS: FUROSEMIDE 20 MG TABLET PO SCH (08:57)
[2018-07-08] MEDS: NYSTATIN SUSPENSION 5 ML LIQUID UDC PO SCH ×3 (08:57→16:24)
[2018-07-08] MEDS: METOPROLOL TARTRATE 50 MG TABLET PO SCH ×2 (08:57→21:00)
[2018-07-08] MEDS: DIGOXIN 125 MCG TABLET PO SCH (08:57)
[2018-07-08] MEDS: SPIRONOLACTONE 25 MG TABLET PO SCH (08:57)
[2018-07-08] MEDS: FERROUS SULFATE 325 MG TABEC PO SCH (08:57)
[2018-07-08] MEDS: LINEZOLID 600 MG TABLET PO SCH ×2 (08:58→21:20)
[2018-07-08] MEDS: [UNRECOGNIZED DRUG - OTHER] PO SCH ×2 (08:58→16:25)
[2018-07-08] MEDS: DICYCLOMINE HCL 10 MG CAPSULE PO SCH ×3 (08:58→16:24)
--- NOTE | 2018-07-08 13:43 | NUR ---
INTERDISCIPLINARY TEAM CONFERENCE
--- NOTE | 2018-07-08 14:03 | NUR ---
Patient continue therapy for ambulation and ADL activity. Continue contact isolation for VRE T-tube. not in distress. On regular diet. Continue aspiration precaution. Continue speech therapy, monitoring for difficulty swallowing. no complaint of pain/discomfort. will continue monitor
[2018-07-08 17:25] VITALS: BP 103/50
--- NOTE | 2018-07-08 17:39 | NUR ---
Patient vomited food at 5pm medium amount, complaint of abdominal pain, maalox 30ml and tylenol 650mg PRN given. will continue monitor
--- NOTE | 2018-07-08 18:51 | NUR ---
Patient refused to eat at dinner. Vomited x2 with food noted. Zofran 2ml given via IV push thru central line site. intact and patent. GIANCARLO Benton notified ordered BMP and lipase. will continue monitor
[2018-07-08 19:31] LABS: CARBON DIOXIDE 22 mmol/L (21-32); CHLORIDE 97 mmol/L (98-107); GLUCOSE 145 mg/dL (74-106); LIPASE 445 U/L (73-393); POTASSIUM 5.9 mmol/L (3.5-5.1); UREA NITROGEN, BLOOD 51 mg/dL (7-18)
--- NOTE | 2018-07-08 20:40 | NUR ---
Received call from Serenity Cortez NP to transfer patient to [facility]. Material Hauler and [facility] Charge Nurse Tere made aware.
[2018-07-08 21:00] VITALS: BP 120/41
[2018-07-08] MEDS: DOCUSATE SODIUM 100 MG CAPSULE PO SCH (21:19)
--- NOTE | 2018-07-08 21:50 | NUR ---
To radiology via wheelchair for CT abdomen/pelvis as ordered.
--- NOTE | 2018-07-08 22:00 | NUR ---
Back from Radiology.
[2018-07-08 22:08] LABS: BILIRUBIN,DIRECT 0.6 mg/dL (0.0-0.2); BILIRUBIN,TOTAL 1.3 mg/dL (0.2-1.0)
--- NOTE | 2018-07-08 22:40 | NUR ---
Transferred patient to [facility] via wheel chair with belongings, accompanied by her nurse and son in law.
--- NOTE | 2018-07-08 22:40 | NUR ---
Informed Dr Rivas regarding patient transfer to [facility].
[2018-07-09] MEDS: IPRATROPIUM BROMIDE 0.5 MG/2.5 ML NEBU NEB SCH (02:58)
[2018-07-09] MEDS: ALBUTEROL SULFATE 2.5 MG/3 ML NEBU NEB SCH (02:58)
== END 2018-07-09 03:17 | disposition short-term general hospital (02) | DRG 189 ==
LOC: UNDOADMIN 17:52 → TELE 07-09 00:19 → UNDODISIN 07-09 03:17
PROVIDERS: ADMIT Physical Medicine & Rehabilitation Pain Medicine; ATTEND Physical Medicine & Rehabilitation Pain Medicine
DX: J96.01 Acute respiratory failure with hypoxia (principal); I50.33 Acute on chronic diastolic (congestive) heart failure; K85.90 Acute pancreatitis without necrosis or infection, unspecified; N17.0 Acute kidney failure with tubular necrosis; R64 Cachexia; D68.59 Other primary thrombophilia; E87.2 Acidosis; I13.0 Hypertensive heart and chronic kidney disease with heart failure and stage 1 through stage 4 chronic kidney disease, or unspecified chronic kidney disease; E03.9 Hypothyroidism, unspecified; I25.2 Old myocardial infarction; I48.0 Paroxysmal atrial fibrillation; K21.9 Gastro-esophageal reflux disease without esophagitis; M62.84 Sarcopenia; Z86.718 Personal history of other venous thrombosis and embolism; Z79.01 Long term (current) use of anticoagulants; Z90.49 Acquired absence of other specified parts of digestive tract; Z86.73 Personal history of transient ischemic attack (TIA), and cerebral infarction without residual deficits; R53.81 Other malaise; D63.8 Anemia in other chronic diseases classified elsewhere; Z68.20 Body mass index [BMI] 20.0-20.9, adult; N28.9 Disorder of kidney and ureter, unspecified; Z87.11 Personal history of peptic ulcer disease; E05.90 Thyrotoxicosis, unspecified without thyrotoxic crisis or storm; N18.9 Chronic kidney disease, unspecified; Z87.440 Personal history of urinary (tract) infections
CPT/HCPCS: 36415; 83690; 92523; 92526; 92610; 94640; 97110; 97116; 97165; 97530; 97535; J2405; J3590

== ENCOUNTER 2018-07-08 22:35 | Inpatient (IN) | payer MEDICARE, OTHER ==
[~2018-07-08] VITALS: Ht 144.8 cm; Wt 46.3 kg
[~2018-07-08 22:35] MED LIST changes: -ALBU1.25 NEB; -ALBU2.5V13 NEB; -ALEN70TA3 PO; -DICY10CA13 PO; -DOCU-141 PO; -HYDR-3326 PO; -IPRA0.2S48 NEB; +LICO1POW2 PO; +MAG355OR18 PO; -MAG360OR83 PO; -MORP1SYR2 IV; -ONDA4AMP IVP; -PANT40VI IV; +SENN-129 PO
[2018-07-08 22:53] VITALS: BP 117/51
--- NOTE | 2018-07-08 23:30 | NUR ---
Direct admit from [facility] Acute Rehab via wheelchair, awake alert & oriented, no SOB denies chest pain. Patient stated she was dizzy & nauseous, vomited 2x prior medsur admission today. Vital signs WNL. Placed on bed comfortably. Right T-tube in place, contact precaution observed for VRE. Called [facility] patient transition specialist for admission orders. Patient's son in law in room.
[2018-07-09] MEDS ORDERED: ZOLPIDEM 5 MG TABLET PO PRN (01:15)
[2018-07-09] MEDS ORDERED: Z GUARD REMEDY PASTE 57 GM TUBE TOP PRN (01:15)
[2018-07-09] MEDS ORDERED: ACETAMINOPHEN 325 MG TABLET PO PRN ×2 (01:15)
[2018-07-09] MEDS ORDERED: MAGNESIUM HYDROXIDE 30 ML LIQUID UDC PO PRN (01:15)
[2018-07-09] MEDS ORDERED: HYDROCODONE/APAP 5-325MG TABLET PO PRN (01:15)
--- NOTE | 2018-07-09 02:00 | NUR ---
Received admission orders from Dr. Burr.
--- NOTE | 2018-07-09 02:11 | NUR ---
Assisted to bedside commode, moderate amount yellow-urine noted.
--- NOTE | 2018-07-09 03:00 | NUR ---
Asleep, no sign of distress.
[2018-07-09] MEDS: IPRATROPIUM BROMIDE 0.5 MG/2.5 ML NEBU NEB SCH ×6 (03:11→22:43)
[2018-07-09] MEDS: ALBUTEROL SULFATE 2.5 MG/3 ML NEBU NEB SCH ×6 (03:11→22:43)
[2018-07-09] MEDS ORDERED: IV NS 1000 ML 1,000 ML IV PRN (03:30)
[2018-07-09] MEDS: ONDANSETRON 4 MG/2 ML VIAL IV PRN ×2 (03:38→17:00)
[2018-07-09 04:00] VITALS: BP 130/36
[2018-07-09] MEDS ORDERED: DEXTROSE 50% 50 ML DISP.SYRIN IV PRN (04:00)
--- NOTE | 2018-07-09 04:13 | NUR ---
Awake kept NPO, c/o N/V. Zofran 4mg IVP adm. Placed on Telemetry, A-fib on the monitor HR 47 bpm.
--- NOTE | 2018-07-09 04:20 | NUR ---
STAT EKG done as ordered, Junctional rhythm 47bpm on the monitor.
[2018-07-09] MEDS: BLOOD SUGAR DIAGNOSTIC 1 EACH STRIP VI SCH ×4 (06:29→23:34)
[2018-07-09] MEDS: INSULIN REGULAR, HUMAN 300 UNIT/3 ML VIAL SQ PRN ×2 (06:30→12:05)
--- NOTE | 2018-07-09 06:31 | NUR ---
Morning accu check shows 141 mg/dl. Insulin coverage didn't administer, patient has been NPO since yesterday & increasing gen weakness noted. Patient remains nauseous at this time, Junctional rhythm w/ a HR of 48 on the monitor.
[2018-07-09 06:35] LABS: BASOPHILS # (AUTO) 0.1 K/uL (0.0-8.0); EOSINOPHILS # (AUTO) 0.1 K/uL (0.0-0.7); LYMPHOCYTES # (AUTO) 1.2 K/uL (20.0-40.0); MONOCYTES # (AUTO) 0.5 K/uL (2.0-10.0)
[2018-07-09 06:44] LABS: AMYLASE 78 U/L (25-115); LIPASE 352 U/L (73-393)
[2018-07-09 06:45] LABS: ALANINE AMINOTRANSFERASE 34 U/L (14-59); ALKALINE PHOSPHATASE 68 U/L (50-136); ASPARTATE AMINOTRANSFERASE 27 U/L (15-37); BASOPHILS % (AUTO) 1.1 % (0.0-2.0); BILIRUBIN,TOTAL 1.6 mg/dL (0.2-1.0); CARBON DIOXIDE 23 mmol/L (21-32); CHLORIDE 96 mmol/L (98-107); CREATININE 2.7 mg/dL (0.6-1.3); EOSINOPHILS % (AUTO) 1.4 % (0.0-7.0); GLUCOSE 126 mg/dL (74-106); HEMATOCRIT 29.7 % (31.2-41.9); LYMPHOCYTES % (AUTO) 12.5 % (20.5-51.5); MAGNESIUM 2.5 mg/dL (1.8-2.4); MEAN CORPUSCULAR HEMOGLOBIN 35.1 uug (24.7-32.8); MEAN CORPUSCULAR HGB CONC 34 g/dL (32.3-35.6); MEAN CORPUSCULAR VOLUME 103.8 fL (75.5-95.3); MONOCYTES % (AUTO) 4.9 % (0.0-11.0); NEUTROPHILS # (AUTO) 7.4 K/uL (1.8-8.9); NEUTROPHILS % (AUTO) 80.1 % (38.5-71.5); PHOSPHOROUS 6.8 mg/dL (2.5-4.9); POTASSIUM 6.1 mmol/L (3.5-5.1); RED BLOOD CELL COUNT(AUTO) 2.86 MIL/uL (3.63-4.92); TOTAL PROTEIN, SERUM 6.8 g/dL (6.4-8.2); UREA NITROGEN, BLOOD 65 mg/dL (7-18)
[2018-07-09 06:49] LABS: *BLOOD, URINE Trace-lysed (NEGATIVE); *KETONES,URINE 1+ (NEGATIVE); *PROTEIN,URINE 1+ (NEGATIVE); *UROBILINOGEN,URINE 0.2 E.U./dl (NORMAL); LEUKOCYTE ESTERASE ,URINE TRACE (NEGATIVE); NITRITE, URINE NEGATIVE (NEGATIVE); UGLUCOSE NEGATIVE (NEGATIVE)
[2018-07-09 06:51] LABS: WHITE BLOOD COUNT (AUTO) 9.2 K/uL (3.8-11.8)
[2018-07-09 06:52] LABS: PLATELET COUNT (AUTO) 133 K/uL (179-408)
[2018-07-09] MEDS ORDERED: PANTOPRAZOLE SODIUM 40 MG TABLET.DR PO SCH (07:00)
[2018-07-09 07:07] LABS: *BILIRUBIN,URIN 1+ (NEGATIVE)
[2018-07-09 07:08] LABS: *CLARITY,URINE HAZY (CLEAR); *COLOR,URINE DARK YELLOW (YELLOW)
[2018-07-09 07:13] LABS: BACTERIA,URINE MODERATE /HPF (NONE SEEN); SQUAMOUS EPITHELIAL CELL,UR MODERATE /HPF (NONE SEEN); TRANSITIONAL EPI CELLS,URINE FEW /LPF (NONE SEEN); YEAST,URINE FEW /HPF (NONE SEEN)
[2018-07-09 07:14] LABS: CALCIUM OXALATE CRYSTALS,UR FEW /HPF (NONE SEEN)
[2018-07-09 07:19] LABS: MUCUS,URINE FEW /LPF (0-FEW)
[2018-07-09] MEDS ORDERED: SUCRALFATE 1 G TABLET PO SCH ×2 (07:30)
--- NOTE | 2018-07-09 07:45 | NUR ---
RECEIVED PATIENT AWAKE ALERT AND AWARE BUT QUIET AND NOT CONVERSING BUT HAS A YES OR NO RESPONSES AT THIS TIME SHE IS NOTHING BY MOUTH ORDERED WITH IVF IN PROGRESS VIA PICC LINE ON RIGHT UPPER ARM WITH NO S/S OF INFILTERATION AT THIS TIME.NO NAUSEA OR VOMITING AT THIS TIME REMAIN ON O2 WITH NO SHORTNESS OF BREATH PATIENT HAS AN ORDER FOR SPUTUM RESPIRATORY THERAPIST AWARE PATIENT MADE COMFORTABLE AND WILL CONTINUE TO OBSERVE.
[2018-07-09] MEDS: PANTOPRAZOLE SODIUM 40 MG VIAL IV SCH (08:05)
[2018-07-09] MEDS: DICYCLOMINE HCL 10 MG CAPSULE PO SCH ×2 (08:06→12:35)
[2018-07-09] MEDS: SENNOSIDES/DOCUSATE SODIUM TABLET PO SCH (08:06)
[2018-07-09] MEDS ORDERED: Medication Not On Formulary EA (Apixaban (Eliquis) 2.5 MG) PO SCH (09:00)
[2018-07-09] MEDS ORDERED: METOPROLOL TARTRATE 50 MG TABLET PO SCH (09:00)
[2018-07-09] MEDS ORDERED: LINEZOLID 600 MG TABLET PO SCH (09:00)
[2018-07-09] MEDS ORDERED: FERROUS SULFATE 325 MG TABEC PO SCH (09:00)
[2018-07-09] MEDS ORDERED: DIGOXIN 125 MCG TABLET PO SCH (09:00)
[2018-07-09] MEDS ORDERED: SPIRONOLACTONE 25 MG TABLET PO SCH (09:00)
[2018-07-09] MEDS ORDERED: FUROSEMIDE 40 MG/4 ML VIAL IV SCH (09:00)
[2018-07-09] MEDS ORDERED: FUROSEMIDE 20 MG TABLET PO SCH (09:00)
[2018-07-09] MEDS ORDERED: NYSTATIN SUSPENSION 5 ML LIQUID UDC PO SCH ×2 (09:00)
[2018-07-09] MEDS ORDERED: APIXABAN 2.5 MG PO SCH (09:24)
[2018-07-09 11:25] VITALS: BP 102/49
--- NOTE | 2018-07-09 11:27 | NUR ---
PATIENT SEEN AND EXAMINED BY BLAINE MONDRAGON AWARE OF LOW B/P AT THIS TIME ITS 104 SYSTOLIC AND 47 DIASTOLIC AND POTASSIUM LEVEL IS 6.1 AND DIG IS 2.6 STATED WILL ORDER MEDS BUT STATED TO START PATIENT ON CLEAR LIQUIDS DIET AND INCREASE IVF TO 75 ML/HR AND NOTED.
[2018-07-09] MEDS ORDERED: SODIUM POLYSTYRENE SULFONATE 15 G/60 ML LIQUID UDC PO ONE (13:00)
[2018-07-09] MEDS ORDERED: CEFTRIAXONE 1 G in IV DEXTROSE 5% 50 ML IV SCH (14:00)
[2018-07-09 14:37] LABS: BASOPHILS # (AUTO) 0.1 K/uL (0.0-8.0); BASOPHILS % (AUTO) 0.9 % (0.0-2.0); EOSINOPHILS % (AUTO) 0.5 % (0.0-7.0); HEMATOCRIT 26.1 % (31.2-41.9); HEMOGLOBIN 8.9 g/dL (10.9-14.3); LYMPHOCYTES # (AUTO) 0.5 K/uL (20.0-40.0); LYMPHOCYTES % (AUTO) 6.1 % (20.5-51.5); MEAN CORPUSCULAR HEMOGLOBIN 35.1 uug (24.7-32.8); MEAN CORPUSCULAR HGB CONC 34 g/dL (32.3-35.6); MEAN CORPUSCULAR VOLUME 103.2 fL (75.5-95.3); MONOCYTES # (AUTO) 0.4 K/uL (2.0-10.0); MONOCYTES % (AUTO) 4.5 % (0.0-11.0); NEUTROPHILS # (AUTO) 7.3 K/uL (1.8-8.9); PLATELET COUNT (AUTO) 111 K/uL (179-408); RED BLOOD CELL COUNT(AUTO) 2.53 MIL/uL (3.63-4.92); WHITE BLOOD COUNT (AUTO) 8.2 K/uL (3.8-11.8)
[2018-07-09 14:45] LABS: ALANINE AMINOTRANSFERASE 29 U/L (14-59); ALKALINE PHOSPHATASE 59 U/L (50-136); ASPARTATE AMINOTRANSFERASE 27 U/L (15-37); BILIRUBIN,TOTAL 1.2 mg/dL (0.2-1.0); CARBON DIOXIDE 21 mmol/L (21-32); CHLORIDE 95 mmol/L (98-107); CREATININE 2.9 mg/dL (0.6-1.3); GLUCOSE 279 mg/dL (74-106); MAGNESIUM 2.4 mg/dL (1.8-2.4); PHOSPHOROUS 6.2 mg/dL (2.5-4.9); POTASSIUM 5.2 mmol/L (3.5-5.1); TOTAL PROTEIN, SERUM 6.4 g/dL (6.4-8.2); UREA NITROGEN, BLOOD 69 mg/dL (7-18)
[2018-07-09 16:02] VITALS: BP 108/52
[2018-07-09] MEDS ORDERED: PATIENT MAY USE OWN MED- MD OK PO SCH (17:00)
--- NOTE | 2018-07-09 17:00 | NUR ---
PATIENT VOMITED ABOUT 150 ML OF PARTLY UNDIGESTED FOOD WAS UP ON THE COMMODE VOIDED BUT HAD A BOWEL MOVEMENT ALSO IN THE COMMODE SO WAS UNABLE TO COLLECT URINE ORDERED.ORAL MEDICATIONS HELD AT THIS TIME DUE TO THE EMESIS.
[2018-07-09] MEDS: ****PATIENT'S OWN MED PO SCH (17:10)
[2018-07-09] MEDS: IV NS 1000 ML 1,000 ML IV PRN (18:24)
[2018-07-09 19:25] VITALS: BP 110/32
--- NOTE | 2018-07-09 19:30 | NUR ---
Report received. Patient AAO. NAD noted. On contact isolation for VRE TTube drain. Assessment done. Up to [facility] with assist. Voided clear yellow urine. Addendum: 07/09/18 at 2139 by ZAC DORSEY RN Amended: Links added.
--- NOTE | 2018-07-09 20:10 | NUR ---
Daughters at bedside. Seen by Morris MONDRAGON; spoke to patient's daughters. Isolation dc'd by Morris. Patient c/o indigestion; Maalox po given. Addendum: 07/09/18 at 2141 by ZAC DORSEY RN Amended: Links added.
[2018-07-09] MEDS: MAG HYDROX/AL HYDROX/SIMETH 30 ML LIQUID UDC PO PRN (20:21)
[2018-07-09 23:23] VITALS: BP 114/30
--- NOTE | 2018-07-10 | NUR ---
Sleeping; no acute distress noted.
[2018-07-10] MEDS: IPRATROPIUM BROMIDE 0.5 MG/2.5 ML NEBU NEB SCH ×6 (03:14→23:37)
[2018-07-10] MEDS: ALBUTEROL SULFATE 2.5 MG/3 ML NEBU NEB SCH ×6 (03:14→23:38)
--- NOTE | 2018-07-10 03:30 | NUR ---
Breathing treatment given by RT. Monitor: Afib rate 100's. ER=[id number]. Up to [facility] with assist. Voided clear addi urine; specimen obtained and sent to lab. Addendum: 07/10/18 at 0420 by ZAC DORSEY RN Amended: Links added.
[2018-07-10 03:33] VITALS: BP 93/36
[2018-07-10 04:57] LABS: *BILIRUBIN,URIN NEGATIVE (NEGATIVE); *BLOOD, URINE NEGATIVE (NEGATIVE); *CLARITY,URINE CLEAR (CLEAR); *COLOR,URINE YELLOW (YELLOW); *KETONES,URINE NEGATIVE (NEGATIVE); *PROTEIN,URINE NEGATIVE (NEGATIVE); *UROBILINOGEN,URINE 0.2 E.U./dl (NORMAL); LEUKOCYTE ESTERASE ,URINE TRACE (NEGATIVE); NITRITE, URINE NEGATIVE (NEGATIVE); UGLUCOSE NEGATIVE (NEGATIVE)
[2018-07-10 05:07] LABS: BACTERIA,URINE FEW /HPF (NONE SEEN); RBC,URINE 0-3 /HPF (0-3); SQUAMOUS EPITHELIAL CELL,UR MODERATE /HPF (NONE SEEN)
[2018-07-10 05:08] LABS: *CREATININE,URINE 79.6 mg/dL (30-125); *URINE TOTAL PROTEIN RANDOM 9.3 mg/dL (<150/24HR)
[2018-07-10] MEDS: BLOOD SUGAR DIAGNOSTIC 1 EACH STRIP VI SCH ×3 (05:55→17:54)
[2018-07-10] MEDS: IV NS 1000 ML 1,000 ML IV PRN (05:55)
[2018-07-10 06:21] LABS: BASOPHILS % (AUTO) 0.8 % (0.0-2.0); EOSINOPHILS # (AUTO) 0.2 K/uL (0.0-0.7); EOSINOPHILS % (AUTO) 3.2 % (0.0-7.0); HEMATOCRIT 23.2 % (31.2-41.9); HEMOGLOBIN 7.9 g/dL (10.9-14.3); LYMPHOCYTES # (AUTO) 0.4 K/uL (20.0-40.0); LYMPHOCYTES % (AUTO) 7.3 % (20.5-51.5); MEAN CORPUSCULAR HEMOGLOBIN 34.7 uug (24.7-32.8); MEAN CORPUSCULAR HGB CONC 34 g/dL (32.3-35.6); MONOCYTES # (AUTO) 0.3 K/uL (2.0-10.0); MONOCYTES % (AUTO) 4.7 % (0.0-11.0); NEUTROPHILS # (AUTO) 4.5 K/uL (1.8-8.9); PLATELET COUNT (AUTO) 88 K/uL (179-408); WHITE BLOOD COUNT (AUTO) 5.4 K/uL (3.8-11.8)
[2018-07-10 06:35] LABS: RED BLOOD CELL COUNT(AUTO) 2.27 MIL/uL (3.63-4.92)
--- NOTE | 2018-07-10 06:37 | NUR ---
Cholecystostomy Tube intact; emptied 80 ml. Dressing dry and intact. Tele: remains Afib rate 80's-100's. Dr. Becker notified of rhythm change. No orders.
[2018-07-10 06:54] LABS: CARBON DIOXIDE 23 mmol/L (21-32); CHLORIDE 100 mmol/L (98-107); CHOLESTEROL 78 mg/dL (<200); GLUCOSE 106 mg/dL (74-106); HDL CHOLESTEROL 62 mg/dL (40-60); MAGNESIUM 2.3 mg/dL (1.8-2.4); PHOSPHOROUS 3.6 mg/dL (2.5-4.9); POTASSIUM 3.8 mmol/L (3.5-5.1); TRIGLYCERIDES 57 MG/DL (30-150); UREA NITROGEN, BLOOD 61 mg/dL (7-18)
[2018-07-10] MEDS: SENNOSIDES/DOCUSATE SODIUM TABLET PO SCH (09:09)
[2018-07-10] MEDS: PANTOPRAZOLE SODIUM 40 MG VIAL IV SCH (09:10)
[2018-07-10] MEDS: ****PATIENT'S OWN MED PO SCH ×2 (09:16→17:40)
--- NOTE | 2018-07-10 10:46 | NUR ---
SBAR report received, Pt heavily sleeping this morning, but able to be awoken with cold washcloth, AOx3-4. Pt denies pain, no acute distress or SOB. BP 128/47, HR 92, Tele monitor: Afib. controlled at times, currently 108, varying between 89-110. Pt compliant with routine morning medication administration. PICC line intact, flushed, and patent. Assisted to BSC for voiding. Bed in locked and lowest position, side rails upx2. All safety and comfort measures implemented. Pt personal items and call light placed within reach. Clear liquid diet enforced. Will continue to monitor for safety.
[2018-07-10 11:33] VITALS: BP 128/47
[2018-07-10] MEDS: MAG HYDROX/AL HYDROX/SIMETH 30 ML LIQUID UDC PO PRN ×2 (11:41→20:11)
[2018-07-10] MEDS: ONDANSETRON 4 MG/2 ML VIAL IV PRN (11:49)
[2018-07-10] MEDS ORDERED: PIPERACILLIN/TAZOBACTAM/D5W 3.375 G in PREMIXED 1 EACH IV SCH (14:00)
[2018-07-10] MEDS ORDERED: PIPERACILLIN/TAZOBACTAM/D5W 2.25 G in PREMIXED 1 EACH IV SCH (14:00)
[2018-07-10 15:57] VITALS: BP 126/59
--- NOTE | 2018-07-10 18:53 | NUR ---
Pt seen by CAN REFORMING MACHINE OPERATOR, changes to plan of care include denial for [facility] appointment tomorrow to [facility], family made aware. Pt awaiting evaluation from 2 new additional MDs, pertaining to OB and oncology. 1 episode of nausea and dyspepsia treated with PRN medications as ordered, proven to be effective. Daughter currently visiting at bedside. NS running at 50ml/hr per Md orders. All safety and comfort needs attended to promptly this shift. Last BS of 113 did not require coverage. Currently, controlled A Fib with a HR of 90. Call light within reach. Will continue to monitor and endorse to oncoming fast food shift lead.
[2018-07-10 19:22] VITALS: BP 118/37
--- NOTE | 2018-07-10 19:30 | NUR ---
RECEIVED PATIENT IN BED ALERT, AWAKE NO SOB NO CHEST PAIN NOTED. RHYTHM A FIB ON 90, T-TUBE DRAINING WITH YELLOW COLOR FLUIDS IN SMALL AMOUNT, PICC LINE PATENT, DRESSING INTACT, NO FURTHER EPISODES OF ABDOMINAL PAIN OR NAUSEA VOMITING NOTED. VOIDING AT BEDSIDE COMMODE, ABLE TO PASS GAS. TOLERATE CLEAR LIQUID DIET. REMAIN ON CONTACT ISOLATION VRE T TUBE. GOOD HANDWASHING DONE. FAMILY AT BEDSIDE. CONT TO MONITOR.
[2018-07-10] MEDS: AMIODARONE HCL 200 MG TABLET PO SCH (21:03)
[2018-07-10] MEDS ORDERED: MEROPENEM 500 MG VIAL IV ONE (22:10)
[2018-07-10] MEDS: MEROPENEM 500 MG in IV NORMAL SALINE 50 ML IV SCH (22:16)
[2018-07-10 23:33] VITALS: BP 131/46
[2018-07-11] MEDS: IV NS 1000 ML 1,000 ML IV PRN (00:31)
[2018-07-11] MEDS: BLOOD SUGAR DIAGNOSTIC 1 EACH STRIP VI SCH ×4 (01:22→17:12)
[2018-07-11] MEDS: ALBUTEROL SULFATE 2.5 MG/3 ML NEBU NEB SCH ×6 (02:31→22:30)
[2018-07-11] MEDS: IPRATROPIUM BROMIDE 0.5 MG/2.5 ML NEBU NEB SCH ×6 (02:31→22:30)
[2018-07-11 03:34] VITALS: BP 113/48
[2018-07-11] MEDS: PANTOPRAZOLE SODIUM 40 MG TABLET.DR PO SCH (06:01)
[2018-07-11 06:38] LABS: BASOPHILS # (AUTO) 0.1 K/uL (0.0-8.0); BASOPHILS % (AUTO) 1.2 % (0.0-2.0); EOSINOPHILS # (AUTO) 0.3 K/uL (0.0-0.7); EOSINOPHILS % (AUTO) 6.5 % (0.0-7.0); HEMATOCRIT 22.9 % (31.2-41.9); HEMOGLOBIN 7.8 g/dL (10.9-14.3); LYMPHOCYTES # (AUTO) 0.6 K/uL (20.0-40.0); LYMPHOCYTES % (AUTO) 12.4 % (20.5-51.5); MEAN CORPUSCULAR HEMOGLOBIN 35.3 uug (24.7-32.8); MEAN CORPUSCULAR HGB CONC 34 g/dL (32.3-35.6); MEAN CORPUSCULAR VOLUME 103.8 fL (75.5-95.3); MONOCYTES # (AUTO) 0.3 K/uL (2.0-10.0); NEUTROPHILS # (AUTO) 3.6 K/uL (1.8-8.9); NEUTROPHILS % (AUTO) 72.9 % (38.5-71.5); PLATELET COUNT (AUTO) 76 K/uL (179-408); WHITE BLOOD COUNT (AUTO) 4.9 K/uL (3.8-11.8)
[2018-07-11 06:48] LABS: CARBON DIOXIDE 26 mmol/L (21-32); CHLORIDE 109 mmol/L (98-107); CREATININE 0.9 mg/dL (0.6-1.3); DIGOXIN 0.8 ng/mL (0.9-2.0); GLUCOSE 90 mg/dL (74-106); POTASSIUM 3.8 mmol/L (3.5-5.1); UREA NITROGEN, BLOOD 27 mg/dL (7-18)
[2018-07-11 06:55] LABS: IRON, SERUM 251 ug/dL (50-175)
--- NOTE | 2018-07-11 06:55 | NUR ---
PATIENT SLEPT MOST OF THE NIGHT, NO SOB NO CHEST PAIN, TELE MONITOR RHYTHM CONTROL A FIB AT THIS TIME. T TUBE DRAINING WITH YELLOW COLOR SECRETION IN SMALL AMOUNT 100CC, PICC LINE ON R UPPER ARM PATENT, DRESSING INTACT. NO COMPLAIN OF PAIN AT THIS TIME. CONT ON CONTACT ISOLATION FOR VRE OF T TUBE SITE. KEPT CLEAN DRY AND COMFORTABLE. CALL LIGHT WITHIN REACH.
[2018-07-11 07:23] LABS: FERRITIN 952 ng/mL (8-252)
[2018-07-11] MEDS: AMIODARONE HCL 200 MG TABLET PO SCH ×2 (09:15→20:37)
[2018-07-11] MEDS: SENNOSIDES/DOCUSATE SODIUM TABLET PO SCH (09:16)
[2018-07-11] MEDS: ****PATIENT'S OWN MED PO SCH ×2 (09:16→17:10)
[2018-07-11] MEDS: MEROPENEM 500 MG in IV NORMAL SALINE 50 ML IV SCH ×2 (09:17→21:15)
[2018-07-11 11:12] VITALS: BP 103/45
[2018-07-11 16:00] VITALS: BP 92/44
--- NOTE | 2018-07-11 18:41 | NUR ---
PATIENT HAS BEEN COOPERATIVE WITH CARE, ALL NEEDS MET. NO DISTRESS NOTED THROUGHOUT SHIFT. CURRENTLY PATIENT IN BED, NO DISTRESS, FAMILY AT BEDSIDE. BED IN LOW POSITION, SIDE RAILS UP X2. BED ALARM SET.
[2018-07-11 20:34] VITALS: BP 135/77
--- NOTE | 2018-07-11 21:00 | NUR ---
RECEIVED PATIENT IN BED ALERT ORIENTED, NO SOB NO CHEST PAIN, AVAYA ENGINEER KRISTINA HOFFMAN MADE ROUNDS AND STATED THAT ISOLATION CAN BE DISCONTINUE, PATIENT IS ASYMPTOMATIC, AND BEEN TREATED WITH ABX ALREADY. FAMILY WAS AWARE. T TUBE DRAIN PATENT DRAINING WITH YELLOW COLOR FLUIDS WITH VERY SMALL AMOUNT. NO COMPLAIN OF PAIN AT THIS TIME. RHYTHM CONTROL A FIB ON 90 TO 115. NO FURTHER EPISODES OF NAUSEA AND VOMITING. PATIENT ATE 100% FOOD BROUGHT BY DAUGHTERS. CALL LIGHT WITHIN REACH.
[2018-07-12 00:17] VITALS: BP 100/55
[2018-07-12] MEDS: BLOOD SUGAR DIAGNOSTIC 1 EACH STRIP VI SCH ×3 (00:28→11:59)
[2018-07-12] MEDS: IPRATROPIUM BROMIDE 0.5 MG/2.5 ML NEBU NEB SCH ×4 (02:32→15:19)
[2018-07-12] MEDS: ALBUTEROL SULFATE 2.5 MG/3 ML NEBU NEB SCH ×4 (02:32→15:19)
[2018-07-12 04:44] VITALS: BP 141/75
--- NOTE | 2018-07-12 05:37 | NUR ---
PATIENT SLEPT MOST OF THE NIGHT, ASSISTED WITH TOILETING, VOIDED 2X ON BEDSIDE COMMODE, NO SOB NO CHEST PAIN, RHYTHM IS CONTROL A FIB. T TUBE PATENT DRAINING WITH YELLOW COLOR FLUIDS 50CC, PICC LINE PATENT ON R UPPER ARM PATENT, FLUSHED ALL THREE LUMEN. ON OXYGEN 1LPM OXYGEN SAT 100 %, NO COMPLAIN OF PAIN. CALL LIGHT WITHIN REACH.
[2018-07-12] MEDS: PANTOPRAZOLE SODIUM 40 MG TABLET.DR PO SCH (06:07)
[2018-07-12 06:32] LABS: BASOPHILS % (AUTO) 0.7 % (0.0-2.0); EOSINOPHILS # (AUTO) 0.4 K/uL (0.0-0.7); EOSINOPHILS % (AUTO) 8.7 % (0.0-7.0); HEMATOCRIT 22.9 % (31.2-41.9); HEMOGLOBIN 7.7 g/dL (10.9-14.3); LYMPHOCYTES # (AUTO) 0.7 K/uL (20.0-40.0); LYMPHOCYTES % (AUTO) 14.3 % (20.5-51.5); MEAN CORPUSCULAR HEMOGLOBIN 35.2 uug (24.7-32.8); MEAN CORPUSCULAR HGB CONC 34 g/dL (32.3-35.6); MEAN CORPUSCULAR VOLUME 104.5 fL (75.5-95.3); MONOCYTES # (AUTO) 0.5 K/uL (2.0-10.0); MONOCYTES % (AUTO) 10.3 % (0.0-11.0); NEUTROPHILS # (AUTO) 3.1 K/uL (1.8-8.9); PLATELET COUNT (AUTO) 73 K/uL (179-408); WHITE BLOOD COUNT (AUTO) 4.7 K/uL (3.8-11.8)
[2018-07-12 06:35] LABS: RED BLOOD CELL COUNT(AUTO) 2.19 MIL/uL (3.63-4.92)
[2018-07-12 06:43] LABS: CARBON DIOXIDE 27 mmol/L (21-32); CHLORIDE 110 mmol/L (98-107); CREATININE 0.6 mg/dL (0.6-1.3); GLUCOSE 100 mg/dL (74-106); POTASSIUM 3.8 mmol/L (3.5-5.1); UREA NITROGEN, BLOOD 14 mg/dL (7-18)
[2018-07-12 08:06] LABS: *IMMUNOGLOBULIN G, SERUM 848 mg/dL (700-1600); IMMUNOGLOBULIN A, SERUM 187 mg/dL (64-422); IMMUNOGLOBULIN M, SERUM 30 mg/dL (26-217)
[2018-07-12] MEDS ORDERED: SULFAMETH/TRIMETH 800/160 MG TABLET PO SCH (09:00)
[2018-07-12] MEDS: ****PATIENT'S OWN MED PO SCH (09:20)
[2018-07-12] MEDS: SENNOSIDES/DOCUSATE SODIUM TABLET PO SCH (09:20)
[2018-07-12] MEDS: AMIODARONE HCL 200 MG TABLET PO SCH (09:20)
[2018-07-12 09:26] LABS: EOSINOPHILS % (MANUAL) 9 % (0-8); LYMPHOCYTES % (MANUAL) 14 % (20-40); MONOCYTES % (MANUAL) 10 % (2-10); NEUTROPHILS % (MANUAL) 67 % (42-75)
[2018-07-12 10:07] LABS: CANCER AG, 125 213.4 U/mL (0.0-38.1)
[2018-07-12 11:10] VITALS: BP 121/55
[2018-07-12] MEDS ORDERED: SULF1TAB3 PO (12:22)
[2018-07-12] MEDS ORDERED: DEXT50DI8 IV (12:22)
[2018-07-12] MEDS ORDERED: MAG30ORA PO (12:22)
[2018-07-12] MEDS ORDERED: INSU100V28 SQ (12:22)
[2018-07-12] MEDS ORDERED: HYDR-3326 PO (12:22)
[2018-07-12] MEDS ORDERED: ONDA4VIA23 IV (12:22)
[2018-07-12] MEDS ORDERED: APIX5TAB PO (12:22)
[2018-07-12] MEDS ORDERED: AMIO200T6 PO (12:22)
[2018-07-12] MEDS ORDERED: PANT40TA2 PO (12:22)
[2018-07-12] MEDS ORDERED: MENT71OI TOP (12:22)
[2018-07-12] MEDS ORDERED: Sennosides/Docusate Sodium PO (12:22)
[2018-07-12] MEDS ORDERED: Blood Sugar Diagnostic VI (12:22)
[2018-07-12] MEDS ORDERED: ALBU2.5V7 NEB (12:22)
[2018-07-12] MEDS ORDERED: ACET325T53 PO (12:22)
[2018-07-12] MEDS ORDERED: IPRA0.2S6 NEB (12:22)
[2018-07-12] MEDS: MAG HYDROX/AL HYDROX/SIMETH 30 ML LIQUID UDC PO PRN (14:47)
[2018-07-12 15:03] VITALS: BP 120/50
[2018-07-12 15:10] LABS: A/G RATIO 1.4 (0.7-1.7); ALPHA-1-GLOBULIN 0.2 g/dL (0.0-0.4); ALPHA-2-GLOBULIN 0.5 g/dL (0.4-1.0); BETA GLOBULIN 0.7 g/dL (0.7-1.3); GAMMA GLOBULIN 0.8 g/dL (0.4-1.8); GLOBULIN, TOTAL 2.1 g/dL (2.2-3.9); M-SPIKE Not Observed g/dL (Not Observed)
--- NOTE | 2018-07-12 15:26 | NUR ---
Patient has been cooperative with care, all needs met throughout the day. No distress noted besides mild gastric discomfort. Discharge instructions given to patient, all questions answered, no distress noted. Patient is being discharged to aru.
[2018-07-15 08:06] LABS: *IMMUNOFIXATION RESULT Note: (.)
== END 2018-07-12 16:15 | DRG 438 ==
LOC: MED 22:35 → TELE 07-09 01:14
PROVIDERS: ADMIT Nurse Practitioner Acute Care; ATTEND Nurse Practitioner Acute Care
DX: K85.90 Acute pancreatitis without necrosis or infection, unspecified (principal); N17.0 Acute kidney failure with tubular necrosis; E43 Unspecified severe protein-calorie malnutrition; I50.33 Acute on chronic diastolic (congestive) heart failure; J96.01 Acute respiratory failure with hypoxia; D61.818 Other pancytopenia; I13.0 Hypertensive heart and chronic kidney disease with heart failure and stage 1 through stage 4 chronic kidney disease, or unspecified chronic kidney disease; E87.1 Hypo-osmolality and hyponatremia; R64 Cachexia; N39.0 Urinary tract infection, site not specified; K86.1 Other chronic pancreatitis; E86.0 Dehydration; I48.0 Paroxysmal atrial fibrillation; I25.2 Old myocardial infarction; Z86.718 Personal history of other venous thrombosis and embolism; M62.84 Sarcopenia; K25.9 Gastric ulcer, unspecified as acute or chronic, without hemorrhage or perforation; E03.9 Hypothyroidism, unspecified; Z86.73 Personal history of transient ischemic attack (TIA), and cerebral infarction without residual deficits; Z68.22 Body mass index [BMI] 22.0-22.9, adult; T46.0X5A Adverse effect of cardiac-stimulant glycosides and drugs of similar action, initial encounter; Y92.239 Unspecified place in hospital as the place of occurrence of the external cause; E11.22 Type 2 diabetes mellitus with diabetic chronic kidney disease; N18.9 Chronic kidney disease, unspecified; K21.9 Gastro-esophageal reflux disease without esophagitis; R19.09 Other intra-abdominal and pelvic swelling, mass and lump; D63.8 Anemia in other chronic diseases classified elsewhere; D69.59 Other secondary thrombocytopenia; E11.65 Type 2 diabetes mellitus with hyperglycemia; E87.5 Hyperkalemia; E83.41 Hypermagnesemia; G89.29 Other chronic pain; N20.0 Calculus of kidney; Z79.01 Long term (current) use of anticoagulants; B96.89 Other specified bacterial agents as the cause of diseases classified elsewhere; Z79.4 Long term (current) use of insulin
CPT/HCPCS: 36415; 71045; 76856; 82747; 82784; 83550; 83690; 83735; 84100; 84155; 84156; 84165; 84300; 85014; 85025; 86334; 87040; 87070; 87077; 87086; 93005; 94640; 94664; 97110; 97116; 97530; A4663; C9113; J0696; J1815; J2185; J2405; J2543; J3490; J3590; J7030; J7060

== ENCOUNTER 2018-07-12 16:28 | Inpatient (IN) | payer MEDICARE, OTHER ==
[~2018-07-12] VITALS: Ht 144.8 cm; Wt 46.3 kg
[~2018-07-12 16:28] MED LIST changes: +ACET325T53 PO; +AMIO200T6 PO; +APIX5TAB PO; +Blood Sugar Diagnostic VI; +DEXT50DI8 IV; +HYDR-3326 PO; +INSU100V28 SQ; +MAG30ORA PO; +MENT71OI TOP; +ONDA4VIA23 IV; +SULF1TAB3 PO
[2018-07-12] MEDS ORDERED: Z GUARD REMEDY PASTE 57 GM TUBE TOP PRN ×2 (17:45→19:00)
[2018-07-12 18:33] VITALS: BP 115/54
[2018-07-12] MEDS ORDERED: IV NS 1000 ML 1,000 ML IV PRN (18:52)
[2018-07-12] MEDS ORDERED: THERAHONEY GEL 1.5 OZ TUBE TOP PRN (19:00)
[2018-07-12] MEDS ORDERED: HYDROCODONE/APAP 5-325MG TABLET PO PRN (19:00)
[2018-07-12] MEDS ORDERED: ONDANSETRON 4 MG/2 ML VIAL IV PRN (19:00)
[2018-07-12] MEDS ORDERED: DEXTROSE 50% 50 ML DISP.SYRIN IV PRN (19:00)
[2018-07-12] MEDS ORDERED: INSULIN REGULAR, HUMAN 300 UNIT/3 ML VIAL SQ PRN (19:00)
[2018-07-12] MEDS ORDERED: MAGNESIUM HYDROXIDE 30 ML LIQUID UDC PO PRN (19:00)
[2018-07-12] MEDS ORDERED: MAG HYDROX/AL HYDROX/SIMETH 30 ML LIQUID UDC PO PRN (19:00)
[2018-07-12] MEDS ORDERED: TEMAZEPAM 15 MG CAPSULE PO PRN (19:00)
--- NOTE | 2018-07-12 19:20 | NUR ---
SBAR report received from [facility] nurse Anai
[2018-07-12 19:30] VITALS: BP 101/55
--- NOTE | 2018-07-12 19:46 | NUR ---
Initial note continue: Pt received via wheelchair, assisted in to bed. Board updated. No acute distress or SOB noted. Pt seen by WAITSTAFF. VSS, 98.5, 115/54,100% RA, 86-108 HR. Dinner plate ordered for soft diet. Pt family visiting currently at bedside. All safety and comfort needs attended to. Admitting orders placed, MRSA swab collected and sent to lab. Call light within reach. Bed in locked and lowest position, with side rails up x2. Night nurse endorsed.
[2018-07-12] MEDS: IPRATROPIUM BROMIDE 0.5 MG/2.5 ML NEBU NEB SCH ×2 (19:50→22:32)
[2018-07-12] MEDS: ALBUTEROL SULFATE 2.5 MG/3 ML NEBU NEB SCH ×2 (19:50→22:32)
[2018-07-12] MEDS: SULFAMETH/TRIMETH 800/160 MG TABLET PO SCH (20:58)
[2018-07-12] MEDS: AMIODARONE HCL 200 MG TABLET PO SCH (21:00)
--- NOTE | 2018-07-12 22:00 | NUR ---
The patient refused to take Amiodarone, risks and benefits explained . continue to monitor.
[2018-07-12] MEDS ORDERED: APIXABAN 5 MG TABLET PO ONE (22:15)
[2018-07-12] MEDS: ****PATIENT'S OWN MED PO SCH (23:05)
[2018-07-12] MEDS: BLOOD SUGAR DIAGNOSTIC 1 EACH STRIP VI SCH (23:53)
[2018-07-13] MEDS: ALBUTEROL SULFATE 2.5 MG/3 ML NEBU NEB SCH ×6 (02:30→22:47)
[2018-07-13] MEDS: IPRATROPIUM BROMIDE 0.5 MG/2.5 ML NEBU NEB SCH ×6 (02:30→22:47)
[2018-07-13 04:00] VITALS: BP 112/40
[2018-07-13] MEDS: PANTOPRAZOLE SODIUM 40 MG TABLET.DR PO SCH (06:01)
[2018-07-13] MEDS: BLOOD SUGAR DIAGNOSTIC 1 EACH STRIP VI SCH ×3 (06:05→17:17)
[2018-07-13 06:24] LABS: EOSINOPHILS # (AUTO) 0.4 K/uL (0.0-0.7); EOSINOPHILS % (AUTO) 7.6 % (0.0-7.0); HEMATOCRIT 23.1 % (31.2-41.9); HEMOGLOBIN 7.9 g/dL (10.9-14.3); LYMPHOCYTES # (AUTO) 0.9 K/uL (20.0-40.0); LYMPHOCYTES % (AUTO) 19.5 % (20.5-51.5); MEAN CORPUSCULAR HEMOGLOBIN 34.9 uug (24.7-32.8); MEAN CORPUSCULAR HGB CONC 34 g/dL (32.3-35.6); MEAN CORPUSCULAR VOLUME 102.1 fL (75.5-95.3); MONOCYTES # (AUTO) 0.6 K/uL (2.0-10.0); MONOCYTES % (AUTO) 12.3 % (0.0-11.0); NEUTROPHILS # (AUTO) 2.8 K/uL (1.8-8.9); NEUTROPHILS % (AUTO) 59.6 % (38.5-71.5); PLATELET COUNT (AUTO) 67 K/uL (179-408); WHITE BLOOD COUNT (AUTO) 4.6 K/uL (3.8-11.8)
[2018-07-13 06:47] LABS: RED BLOOD CELL COUNT(AUTO) 2.27 MIL/uL (3.63-4.92)
[2018-07-13 06:54] LABS: ALANINE AMINOTRANSFERASE 23 U/L (14-59); ALKALINE PHOSPHATASE 71 U/L (50-136); ASPARTATE AMINOTRANSFERASE 15 U/L (15-37); BILIRUBIN,TOTAL 0.5 mg/dL (0.2-1.0); CARBON DIOXIDE 27 mmol/L (21-32); CHLORIDE 108 mmol/L (98-107); CREATININE 0.6 mg/dL (0.6-1.3); GLUCOSE 100 mg/dL (74-106); MAGNESIUM 1.7 mg/dL (1.8-2.4); PHOSPHOROUS 1.5 mg/dL (2.5-4.9); POTASSIUM 3.8 mmol/L (3.5-5.1); TOTAL PROTEIN, SERUM 5.2 g/dL (6.4-8.2); UREA NITROGEN, BLOOD 9 mg/dL (7-18)
--- NOTE | 2018-07-13 07:06 | NUR ---
Patient received in bed, AAO X4. Able to make needs known. No sign of acute distress or SOB noted. On room air with 0.5 L/min O2 PRN. No complain of pain V/S checked, brief assessment done. Medication given as ordered. Blood sugar checked at 0000 was 121 no coverage based on scaling scale. At 0600 blood sugar was 98. Blood was drawn from Triple lumens central line,it is in tact, no sign of inflammation. T tube in place draining brownish liquid, emptied 150 ml liquid. Safety measures maintained. Bed brake and alarm on, side rails upx2. Call light and personal belonging within reach. Continue to monitor and will endorse to the day shift nurse.
[2018-07-13] MEDS ORDERED: DOCUSATE SODIUM PO SCH (09:00)
[2018-07-13] MEDS ORDERED: SENNOSIDES PO SCH (09:00)
[2018-07-13] MEDS ORDERED: APIXABAN 5 MG TABLET PO SCH (09:00)
[2018-07-13] MEDS: SULFAMETH/TRIMETH 800/160 MG TABLET PO SCH ×2 (09:48→20:36)
[2018-07-13] MEDS: AMIODARONE HCL 200 MG TABLET PO SCH ×2 (09:49→20:36)
[2018-07-13] MEDS: SENNOSIDES/DOCUSATE SODIUM TABLET PO SCH (09:49)
[2018-07-13] MEDS: ****PATIENT'S OWN MED PO SCH ×2 (09:49→17:17)
[2018-07-13] MEDS ORDERED: MAGNESIUM OXIDE 400 MG TABLET PO ONE (10:15)
[2018-07-13] MEDS ORDERED: NEUTRA PHOS PACKET PO ONE (10:30)
--- NOTE | 2018-07-13 10:34 | NUR ---
Received pt. lying in bed in comfortable position. Pt. A/Ox4 with no c/o pain or discomfort. Pt. on RA tolerating well 100% O2 sat. No new skin condition noted, T tube intact and draining well. All due AM medications administered and tolerated well. No s/sx of hypo/hyperglycemia noted. All safety precaution in placed. Call light and all frequently used items in place. Will continue to monitor accordingly.
[2018-07-13 10:51] VITALS: BP 142/49
[2018-07-13 16:29] VITALS: BP 108/52
[2018-07-13] MEDS: MAG HYDROX/AL HYDROX/SIMETH 30 ML LIQUID UDC PO PRN (17:18)
--- NOTE | 2018-07-13 19:00 | NUR ---
Received patient sitting up in bed. Both daughters at bedside. Alert and verbally responsive. Able to make needs known. Denies any pain and discomfort at this time. No acute distress. No SOB. Right PICC line noted on right upper arm. Kept clean and dry. Patent and intact. All needs attended to promptly. Call light within reach. Will continue to monitor.
--- NOTE | 2018-07-13 19:08 | NUR ---
EOS note: No significant change during this shift. Pt. remain stable. T -tube with 75 ml output. DTR at bedside for emotional support. No s/sx of hypo/hyperglycemia. All due meds given as ordered and tolerated well. Safety measures in place. Call light and all frequently used items in reach.
[2018-07-13 19:46] VITALS: BP 136/68
--- NOTE | 2018-07-13 20:54 | NUR ---
Patient sitting up in bed. Both daughters at bedside. Patient c/o pain 8/10 in right shoulder. No acute distress. Per patient, no pain at rest, only when she lifts arm up above head. Ice pack place at right shoulder at this time. Notified MD. Spoke with Dr. Jackson with new orders for a venous doppler and xray of right shoulder. New orders noted and carried out. Daughters made aware. Will continue to monitor patient.
[2018-07-14] MEDS: BLOOD SUGAR DIAGNOSTIC 1 EACH STRIP VI SCH ×4 (00:53→16:53)
[2018-07-14] MEDS: MAG HYDROX/AL HYDROX/SIMETH 30 ML LIQUID UDC PO PRN ×3 (00:55→23:13)
[2018-07-14] MEDS: IPRATROPIUM BROMIDE 0.5 MG/2.5 ML NEBU NEB SCH ×6 (03:44→23:19)
[2018-07-14] MEDS: ALBUTEROL SULFATE 2.5 MG/3 ML NEBU NEB SCH ×6 (03:44→23:19)
[2018-07-14 05:00] VITALS: BP 127/54
[2018-07-14] MEDS: PANTOPRAZOLE SODIUM 40 MG TABLET.DR PO SCH (06:37)
--- NOTE | 2018-07-14 06:58 | NUR ---
Patient slept comfortably throughout the night. No c/o pain and discomfort at this time. No acute distress. T-tube to RUQ in place. Draining well. DEVYN PICC line in place. Patent and intact. Kept clean and dry. BS is 109. No coverage needed. No s/s of hypoglycemia. Assisted to bedside commode. Tolerated well. All needs attended to promptly. Call light within reach. Will continue to monitor.
[2018-07-14] MEDS: SULFAMETH/TRIMETH 800/160 MG TABLET PO SCH (07:59)
[2018-07-14] MEDS: CALCIUM CARBONATE 500 MG TABLET PO SCH (08:04)
[2018-07-14] MEDS: ****PATIENT'S OWN MED PO SCH ×2 (08:04→18:07)
[2018-07-14] MEDS: SENNOSIDES/DOCUSATE SODIUM TABLET PO SCH (08:06)
[2018-07-14] MEDS: AMIODARONE HCL 200 MG TABLET PO SCH ×2 (09:00→20:38)
[2018-07-14 10:10] VITALS: BP 103/40
[2018-07-14 10:13] VITALS: BP 127/56
--- NOTE | 2018-07-14 10:51 | NUR ---
PER FAMILY REQUEST WE ARE GIVING AMIODARONE ONLY WHEN HEART RATE IS ABOVE 100. NOT GIVEN TODAY, HEART RATE 92
[2018-07-14] MEDS ORDERED: NEUTRA PHOS PACKET PO ONE (11:00)
[2018-07-14] MEDS ORDERED: MAGNESIUM OXIDE 400 MG TABLET PO ONE (11:00)
[2018-07-14 15:49] VITALS: BP 106/53
--- NOTE | 2018-07-14 19:00 | NUR ---
Awake during bedside reporting time. Daughters at bedside. Presented complaint of bilateral knee/legs mild pain, left hand swelling, elevated with pillow. Expressed fear that she might have episode SOB once the daughters left. Assure patient and family that frequent cares rounding will be one by me or my BOOK AGENT assigned and will placed her on O2 while she's asleep and continuos pulse oximeter monitoring. Will continue care as planned.
[2018-07-14] MEDS ORDERED: INSULIN REGULAR, HUMAN 300 UNIT/3 ML VIAL SQ PRN (21:30)
[2018-07-14] MEDS ORDERED: BLOOD SUGAR DIAGNOSTIC 1 EACH STRIP VI SCH (21:30)
[2018-07-14 21:52] VITALS: BP 106/52
--- NOTE | 2018-07-14 23:15 | NUR ---
Complaining of upset stomach. Maalox given as ordered and needed. Will monitor.
[2018-07-15] MEDS: IPRATROPIUM BROMIDE 0.5 MG/2.5 ML NEBU NEB SCH ×6 (02:57→22:30)
[2018-07-15] MEDS: ALBUTEROL SULFATE 2.5 MG/3 ML NEBU NEB SCH ×6 (02:58→22:31)
[2018-07-15 04:00] VITALS: BP 118/43
[2018-07-15 05:34] VITALS: BP 118/43
[2018-07-15] MEDS: LEVOTHYROXINE SODIUM 25 MCG TABLET PO SCH (06:20)
[2018-07-15] MEDS: PANTOPRAZOLE SODIUM 40 MG TABLET.DR PO SCH (06:20)
[2018-07-15] MEDS ORDERED: DEXTROSE 50% 50 ML DISP.SYRIN IV PRN (06:30)
[2018-07-15] MEDS: BLOOD SUGAR DIAGNOSTIC 1 EACH STRIP VI SCH ×4 (06:30→20:49)
--- NOTE | 2018-07-15 06:39 | NUR ---
Shift End Report: Vs stable. Continuos pulse oximeter monitoring rendered saturating 97-100% throughout the night. No further complaint presented. All needs attended and met. No fall/injury. No significant event reported. Continue care as planned.
[2018-07-15 07:18] LABS: BASOPHILS % (AUTO) 0.4 % (0.0-2.0); EOSINOPHILS # (AUTO) 0.2 K/uL (0.0-0.7); EOSINOPHILS % (AUTO) 2.8 % (0.0-7.0); HEMATOCRIT 23.9 % (31.2-41.9); HEMOGLOBIN 8.1 g/dL (10.9-14.3); LYMPHOCYTES # (AUTO) 0.4 K/uL (20.0-40.0); LYMPHOCYTES % (AUTO) 4.9 % (20.5-51.5); MEAN CORPUSCULAR HEMOGLOBIN 34.9 uug (24.7-32.8); MEAN CORPUSCULAR HGB CONC 34 g/dL (32.3-35.6); MEAN CORPUSCULAR VOLUME 103.7 fL (75.5-95.3); MONOCYTES # (AUTO) 0.8 K/uL (2.0-10.0); MONOCYTES % (AUTO) 9.7 % (0.0-11.0); NEUTROPHILS # (AUTO) 6.7 K/uL (1.8-8.9); NEUTROPHILS % (AUTO) 82.2 % (38.5-71.5); PLATELET COUNT (AUTO) 62 K/uL (179-408); WHITE BLOOD COUNT (AUTO) 8.2 K/uL (3.8-11.8)
--- NOTE | 2018-07-15 07:35 | NUR ---
Patient noted resting in bed with eyes closed, no signs of distress noted, no signs of distress, x 2 bed rails, call light in reach, bed locked and lowest position, all needs met at this time.
[2018-07-15 07:44] LABS: CARBON DIOXIDE 25 mmol/L (21-32); CHLORIDE 106 mmol/L (98-107); CREATININE 0.8 mg/dL (0.6-1.3); GLUCOSE 96 mg/dL (74-106); PHOSPHOROUS 1.1 mg/dL (2.5-4.9); POTASSIUM 4.4 mmol/L (3.5-5.1); UREA NITROGEN, BLOOD 7 mg/dL (7-18)
--- NOTE | 2018-07-15 08:42 | NUR ---
The patient is having breakfast. t=The tech will scan her at 9:15.
[2018-07-15] MEDS: AMIODARONE HCL 200 MG TABLET PO SCH ×2 (09:14→20:51)
[2018-07-15] MEDS: ****PATIENT'S OWN MED PO SCH ×2 (09:14→17:18)
[2018-07-15] MEDS: HYDROCODONE/APAP 5-325MG TABLET PO PRN ×2 (09:14→20:50)
[2018-07-15] MEDS: SENNOSIDES/DOCUSATE SODIUM TABLET PO SCH (09:14)
[2018-07-15] MEDS: CALCIUM CARBONATE 500 MG TABLET PO SCH (09:14)
--- NOTE | 2018-07-15 11:30 | NUR ---
PT WITH PHYSICAL THERAPY
[2018-07-15] MEDS ORDERED: NEUTRA PHOS PACKET PO ONE (12:00)
[2018-07-15] MEDS: INSULIN REGULAR, HUMAN 300 UNIT/3 ML VIAL SQ PRN ×2 (12:20→20:58)
[2018-07-15 15:59] VITALS: BP 114/33
[2018-07-15] MEDS: ACETAMINOPHEN 325 MG TABLET PO PRN (17:18)
[2018-07-15 20:00] VITALS: BP 105/51
[2018-07-15] MEDS ORDERED: METHYL SALICYLATE/MENTHOL CREAM 28 GM TUBE TOP PRN (23:00)
[2018-07-16] MEDS: ALBUTEROL SULFATE 2.5 MG/3 ML NEBU NEB SCH ×6 (03:30→22:32)
[2018-07-16] MEDS: IPRATROPIUM BROMIDE 0.5 MG/2.5 ML NEBU NEB SCH ×6 (03:30→22:32)
[2018-07-16 04:00] VITALS: BP 94/38
--- NOTE | 2018-07-16 05:41 | NUR ---
Received pt at the beginning of shift sleeping comfortably, aroused easily to verbal stimuli. AAO x4. Daughter came by to visit. All meds given as ordered and insulin coverage given. Safety measures maintained. Call light and personal belongings within reach. Will continue to monitor.
[2018-07-16] MEDS: PANTOPRAZOLE SODIUM 40 MG TABLET.DR PO SCH (06:06)
[2018-07-16] MEDS: LEVOTHYROXINE SODIUM 25 MCG TABLET PO SCH (06:06)
[2018-07-16] MEDS: BLOOD SUGAR DIAGNOSTIC 1 EACH STRIP VI SCH ×4 (06:31→20:37)
--- NOTE | 2018-07-16 07:15 | NUR ---
PATIENT ON BED ASLEEP. NO ACUTE DISTRESS NOTED. ON ROOM AIR. CHOLECYSTECTOMY TUBE W/ DRAINAGE BAG INTACT AND DRAINING WELL. TRIPLE LUMEN PICC LINE INTACT AND PATENT. APPEARS COMFORTABLE. CALL LIGHT WITHIN REACH. WILL CONTINUE TO MONITOR CLOSELY.
[2018-07-16] MEDS ORDERED: METHYL SALICYLATE/MENTHOL CREAM 28 GM TUBE TOP PRN (07:30)
[2018-07-16 08:01] LABS: PHOSPHOROUS 2.8 mg/dL (2.5-4.9)
[2018-07-16] MEDS: AMIODARONE HCL 200 MG TABLET PO SCH ×2 (09:36→20:43)
[2018-07-16] MEDS: SENNOSIDES/DOCUSATE SODIUM TABLET PO SCH (09:36)
[2018-07-16] MEDS: CALCIUM CARBONATE 500 MG TABLET PO SCH (09:36)
[2018-07-16] MEDS: ****PATIENT'S OWN MED PO SCH ×2 (09:38→16:15)
[2018-07-16] MEDS: INSULIN REGULAR, HUMAN 300 UNIT/3 ML VIAL SQ PRN ×3 (11:29→20:45)
[2018-07-16] MEDS: MAG HYDROX/AL HYDROX/SIMETH 30 ML LIQUID UDC PO PRN ×2 (15:32→20:44)
[2018-07-16 16:52] VITALS: BP 115/39
[2018-07-16 20:00] VITALS: BP 145/61
--- NOTE | 2018-07-16 21:52 | NUR ---
Received pt sitting up in bed and eating dinner. AAO x4. Family at bedside. No acute distress noted. Received routine breathing treatment. PICC line on right upper arm triple lumen, patent and intact. Cholecystectomy tube draining small amount, yellow in color. Meds and insulin coverage given as ordered. Safety measures maintained. Call light and personal belongings within reach. Will continue to monitor.
[2018-07-17] MEDS: ALBUTEROL SULFATE 2.5 MG/3 ML NEBU NEB SCH ×6 (02:33→23:03)
[2018-07-17] MEDS: IPRATROPIUM BROMIDE 0.5 MG/2.5 ML NEBU NEB SCH ×6 (02:33→23:03)
[2018-07-17] MEDS: ACETAMINOPHEN 325 MG TABLET PO PRN ×2 (03:02→17:55)
[2018-07-17] MEDS: MAG HYDROX/AL HYDROX/SIMETH 30 ML LIQUID UDC PO PRN ×3 (03:03→23:28)
[2018-07-17 04:00] VITALS: BP 120/54
[2018-07-17] MEDS: PANTOPRAZOLE SODIUM 40 MG TABLET.DR PO SCH (06:14)
[2018-07-17] MEDS: LEVOTHYROXINE SODIUM 25 MCG TABLET PO SCH (06:14)
[2018-07-17] MEDS: BLOOD SUGAR DIAGNOSTIC 1 EACH STRIP VI SCH ×4 (06:48→20:42)
[2018-07-17 07:45] VITALS: BP 138/63
[2018-07-17] MEDS: AMIODARONE HCL 200 MG TABLET PO SCH ×2 (08:31→20:38)
[2018-07-17] MEDS: CALCIUM CARBONATE 500 MG TABLET PO SCH (08:32)
[2018-07-17] MEDS: SENNOSIDES/DOCUSATE SODIUM TABLET PO SCH (08:32)
[2018-07-17 09:15] LABS: BASOPHILS % (AUTO) 0.5 % (0.0-2.0); EOSINOPHILS # (AUTO) 0.3 K/uL (0.0-0.7); HEMATOCRIT 23.8 % (31.2-41.9); HEMOGLOBIN 8.1 g/dL (10.9-14.3); LYMPHOCYTES # (AUTO) 0.8 K/uL (20.0-40.0); LYMPHOCYTES % (AUTO) 10.8 % (20.5-51.5); MEAN CORPUSCULAR HEMOGLOBIN 35.2 uug (24.7-32.8); MEAN CORPUSCULAR HGB CONC 34 g/dL (32.3-35.6); MEAN CORPUSCULAR VOLUME 103.4 fL (75.5-95.3); MONOCYTES # (AUTO) 0.6 K/uL (2.0-10.0); MONOCYTES % (AUTO) 8.5 % (0.0-11.0); NEUTROPHILS # (AUTO) 5.4 K/uL (1.8-8.9); NEUTROPHILS % (AUTO) 76.2 % (38.5-71.5); PLATELET COUNT (AUTO) 149 K/uL (179-408); WHITE BLOOD COUNT (AUTO) 7.1 K/uL (3.8-11.8)
[2018-07-17 09:28] LABS: CARBON DIOXIDE 25 mmol/L (21-32); CHLORIDE 106 mmol/L (98-107); CREATININE 0.8 mg/dL (0.6-1.3); GLUCOSE 101 mg/dL (74-106); POTASSIUM 4.2 mmol/L (3.5-5.1)
[2018-07-17 09:29] LABS: MAGNESIUM 1.9 mg/dL (1.8-2.4); PHOSPHOROUS 3.1 mg/dL (2.5-4.9)
[2018-07-17 09:50] LABS: UREA NITROGEN, BLOOD 14 mg/dL (7-18)
[2018-07-17] MEDS: ****PATIENT'S OWN MED PO SCH ×2 (09:50→16:34)
--- NOTE | 2018-07-17 09:57 | NUR ---
Received pt. in bed with eyes open and comfortable. Pt. A/OX4, able to make her needs known. Denies CP or SOB, tolerating RA 98%. All due AM medications administered as ordered and tolerated well. Triple lumen PICC line C/D/I and patent. T-tube draining with yellow output, remain intact. All pt. needs promptly attended and met. All safety measures in place, call light and all frequently used items in reach. Will continue to monitor accordingly.
[2018-07-17] MEDS: INSULIN REGULAR, HUMAN 300 UNIT/3 ML VIAL SQ PRN ×2 (11:18→16:09)
[2018-07-17 16:01] VITALS: BP 96/48
--- NOTE | 2018-07-17 18:53 | NUR ---
EOS Note: No significant change during this shift. No changes in mentation, remain A/Ox4 with episodes of forgetfulness. Pt. able to make her needs known. No s/sx of hypo/hyperglycemia noted. DEVYN PICC line dressing changed, no s/sx of IV complication noted, placed pt. in supine position, changed dressing with sterile technique. Secured PICC with stat lock and covered with tegaderm. Arm circumference measured at 24 CM. Pt. tolerated procedure well. Pt. schedule for cholecystostomy tube removal on 07/18/18 @ [facility], pt, tube draining well with dark yellow output and family aware. Cholecystostomy tube output during this shift: 55ML. No special pre-op required for removal of cholecystostomy tube per DTR, requesting output log for drain, will endorse accordingly. All due medications administered as ordered. Pt. still with c/o stomach pain, PRN maalox and tylenol administer with relief. Encourage fluid intake as tolerated. No new skin condition noted. All pt. needs attended and met. Safety measures in place. Call light and all frequently used items within pt. reach. Will endorse to oncoming shift accordingly.
--- NOTE | 2018-07-17 19:30 | NUR ---
RECEIVED PT SITTING IN COMMODE. CAREGIVER AT BESIDE, IN NO ACUTE SIGNS OF DISTRESS AT THIS TIME. SAFETY MEASURES RENDERED.
[2018-07-17] MEDS: HYDROCODONE/APAP 5-325MG TABLET PO PRN (20:39)
[2018-07-17] MEDS ORDERED: METOPROLOL TARTRATE 25 MG TABLET PO SCH (21:00)
[2018-07-17 21:07] VITALS: BP 130/52
[2018-07-18] MEDS: IPRATROPIUM BROMIDE 0.5 MG/2.5 ML NEBU NEB SCH ×2 (02:51→08:04)
[2018-07-18] MEDS: ALBUTEROL SULFATE 2.5 MG/3 ML NEBU NEB SCH ×2 (02:51→08:04)
[2018-07-18] MEDS: ACETAMINOPHEN 325 MG TABLET PO PRN (05:41)
[2018-07-18 06:15] VITALS: BP 78/30
[2018-07-18 06:30] VITALS: BP 80/37
[2018-07-18] MEDS: LEVOTHYROXINE SODIUM 25 MCG TABLET PO SCH (06:36)
[2018-07-18] MEDS: PANTOPRAZOLE SODIUM 40 MG TABLET.DR PO SCH (06:36)
[2018-07-18] MEDS: BLOOD SUGAR DIAGNOSTIC 1 EACH STRIP VI SCH (06:37)
[2018-07-18 06:47] VITALS: BP 100/17
--- NOTE | 2018-07-18 06:47 | NUR ---
BP LOW 78/30 HR 40 PT IS ALERT, CONVERSATIONAL, O2 SAT NORMAL ON R/A UNABLE TO OBTAIN TEMP AT THIS TIME. ELEVATE LEGS. INTERNATIONAL FREIGHT FORWARDER DR MARISOL BRYAN. RECHECKED 80/37 HR 40 TEMP 97.4 RECTAL. Addendum: 07/18/18 at 0746 by SRUTHI MATHEWS RN DR. MARISOL REIS PAGEMiguel X3. NO RESPONSE.
--- NOTE | 2018-07-18 07:15 | NUR ---
DR. FERRER MADE AWARE OF PT STATUS, ORDERED TRANSFER TO TELE.
--- NOTE | 2018-07-18 07:29 | NUR ---
FAMILY AWARE OF TRANSFER.
[2018-07-18] MEDS ORDERED: IV NORMAL SALINE 250 ML BAG IV ONE (07:30)
--- NOTE | 2018-07-18 08:00 | NUR ---
GIVEN REPORT TO [facility]
== END 2018-07-18 07:00 | disposition short-term general hospital (02) | DRG 439 ==
PROVIDERS: ADMIT Physical Medicine & Rehabilitation Pain Medicine; ATTEND Physical Medicine & Rehabilitation Pain Medicine
DX: K85.90 Acute pancreatitis without necrosis or infection, unspecified (principal); I50.32 Chronic diastolic (congestive) heart failure; N39.0 Urinary tract infection, site not specified; J98.11 Atelectasis; E46 Unspecified protein-calorie malnutrition; K86.1 Other chronic pancreatitis; D63.8 Anemia in other chronic diseases classified elsewhere; E03.9 Hypothyroidism, unspecified; Z68.22 Body mass index [BMI] 22.0-22.9, adult; Z79.01 Long term (current) use of anticoagulants; E11.9 Type 2 diabetes mellitus without complications; I25.2 Old myocardial infarction; Z86.718 Personal history of other venous thrombosis and embolism; I11.0 Hypertensive heart disease with heart failure; R53.81 Other malaise; K21.9 Gastro-esophageal reflux disease without esophagitis; I48.0 Paroxysmal atrial fibrillation; E78.5 Hyperlipidemia, unspecified; K29.60 Other gastritis without bleeding; M40.50 Lordosis, unspecified, site unspecified; M19.021 Primary osteoarthritis, right elbow; M62.84 Sarcopenia; M47.816 Spondylosis without myelopathy or radiculopathy, lumbar region; Z86.73 Personal history of transient ischemic attack (TIA), and cerebral infarction without residual deficits; Z90.49 Acquired absence of other specified parts of digestive tract; R20.2 Paresthesia of skin; B96.89 Other specified bacterial agents as the cause of diseases classified elsewhere; I95.9 Hypotension, unspecified; R00.1 Bradycardia, unspecified
CPT/HCPCS: 36415; 71045; 72100; 73030; 73090; 83735; 84100; 84443; 85025; 92523; 92526; 92610; 94640; 97110; 97112; 97116; 97530; 97535; A4663; J1815; J3590; J7050

== ENCOUNTER 2018-07-18 07:00 | Inpatient (IN) | payer MEDICARE, OTHER ==
[2018-07-18] VITALS (52 sets, daily range): BP systolic 54–163; BP diastolic 15–92
--- NOTE | 2018-07-18 08:30 | NUR ---
Received this transfer/admission from ARU, 82 yo female, alert, oriented x3, pale, dusky and weak. Placed on tele with junctional rhythm bradycardia 32-55, BP 96/25.O2 at 2L/NC with O2 sat 99%. Dr.Tim Hester informed with orders to Admit to OPAL.
--- NOTE | 2018-07-18 09:00 | NUR ---
Report given to Hannah for OPAL care
[2018-07-18] MEDS ORDERED: MAGNESIUM HYDROXIDE 30 ML LIQUID UDC PO PRN (09:15)
[2018-07-18] MEDS ORDERED: Z GUARD REMEDY PASTE 57 GM TUBE TOP PRN (09:15)
[2018-07-18] MEDS ORDERED: ONDANSETRON 4 MG/2 ML VIAL IV PRN ×2 (09:15→11:30)
[2018-07-18] MEDS ORDERED: ACETAMINOPHEN 325 MG TABLET PO PRN (09:15)
--- NOTE | 2018-07-18 10:25 | NUR ---
BP 86/[address] AND [address] MAY AROUND WITH ORDERS TO GIVE NS 200 ML ONLY BOLUS
[2018-07-18] MEDS ORDERED: NORMAL SALINE IV ONE (10:45)
--- NOTE | 2018-07-18 10:55 | NUR ---
SEEN BY DR HERNANDEZ FOR FURTHER CARDIOLOGY EVAL SEE NOTES
[2018-07-18] MEDS ORDERED: IV NS 1000 ML 1,000 ML IV SCH (11:30)
[2018-07-18] MEDS ORDERED: DOPamine IV DRIP 400 MG/250ML 250 ML IV PRN (11:30)
[2018-07-18] MEDS ORDERED: IV NS 1000 ML 500 ML IV ONE (11:30)
--- NOTE | 2018-07-18 11:36 | NUR ---
BP RECHECK /, PATIENT VERY DROWSY WARM AND DRY SKIN 98% WITH 2L NC. DR MAY AROUND WITH OR TO TRANSFER PATIENT TO ICU FOR DOPAMINE DRIP. SON IN LAW AT BEDSIDE UPDATED WITH PATIENT STATUS. SUPERVISOR MICROWAVE NOTIFIED. REPORT GIVEN TO DISH MAKER
--- NOTE | 2018-07-18 11:40 | NUR ---
TRANSFERRED PATIENT TO ICU VIA BED
[2018-07-18 11:57] LABS: BASOPHILS % (AUTO) 0.1 % (0.0-2.0); EOSINOPHILS % (AUTO) 0.1 % (0.0-7.0); HEMOGLOBIN 8.8 g/dL (10.9-14.3); LYMPHOCYTES # (AUTO) 0.9 K/uL (20.0-40.0); MEAN CORPUSCULAR VOLUME 113.1 fL (75.5-95.3); PLATELET COUNT (AUTO) 144 K/uL (179-408); WHITE BLOOD COUNT (AUTO) 14.5 K/uL (3.8-11.8)
[2018-07-18] MEDS ORDERED: SODIUM BICARBONATE 8.4% 50 MEQ/50 ML DISP.SYRIN IV ONE (11:57)
[2018-07-18] MEDS ORDERED: IV NORMAL SALINE 500 ML IV ONE (12:00)
--- NOTE | 2018-07-18 12:00 | NUR ---
RECEIVED A 82 Y/O FEMALE PT FROM [facility] A CASE OF HYPOTENSIVE , LETHARGIC, AND BRADYCARDIA. PT HAS A RT UPPER ARM PICC LINE . UPON ARRIVAL TO ICU, PT CONNECTED TO BOTTOM SAW OPERATOR V/S TAKEN. PT SHOWING BRADYCARDIA 30BPM, HYPOTENSIVE, RESPONSIVE TO TOUCH , PUT ON 2LPM N/C. FC INSERTED , PT STARTED ON DOPAMINE DRIP AND NS 0.9% 500ML IV STAT GIVEN.
[2018-07-18] MEDS: DOPamine IV DRIP 800 MG/250ML 250 ML IV PRN ×2 (12:02→19:28)
[2018-07-18] MEDS ORDERED: PIPERACILLIN/TAZOBACTAM/D5W 50 ML IV SCH (12:15)
--- NOTE | 2018-07-18 12:25 | NUR ---
RECEIVED A CALL FROM LAB REGARDING LACTIC ACID 18.7, DR HERNÁNDEZ ON SITE INFORMED. GIANCARLO PEREYRA INFORMED ACCORDING TO RESULT BICARB ORDERED IV.
[2018-07-18 12:27] LABS: HEMATOCRIT 28.8 % (31.2-41.9); LYMPHOCYTES % (AUTO) 6.1 % (20.5-51.5); MEAN CORPUSCULAR HEMOGLOBIN 34.7 uug (24.7-32.8); MEAN CORPUSCULAR HGB CONC 31 g/dL (32.3-35.6); MONOCYTES # (AUTO) 1.4 K/uL (2.0-10.0); MONOCYTES % (AUTO) 9.6 % (0.0-11.0); NEUTROPHILS # (AUTO) 12.2 K/uL (1.8-8.9); NEUTROPHILS % (AUTO) 84.1 % (38.5-71.5); RED BLOOD CELL COUNT(AUTO) 2.54 MIL/uL (3.63-4.92)
[2018-07-18] MEDS ORDERED: IV NS 1000 ML 1,000 ML IV PRN (12:30)
[2018-07-18] MEDS ORDERED: IV NS 1000 ML 1,000 ML IV ONE ×2 (12:30→14:45)
[2018-07-18] MEDS ORDERED: NOREPINEPHRINE BITARTRATE 16 MG in IV DEXTROSE 5% 500 ML IV PRN (12:30)
--- NOTE | 2018-07-18 12:30 | NUR ---
PT BECAME UNRESPONSIVE, DR HERNÁNDEZ ARRIVED STAT ABGS DONE, LEVOPHED STARTED MAXIMUM DOSE, DOPAMINE DRIP ON MAXIMUM DOSE, N/S 0.9% RUNNING,PT RECEIVED 4 VIALS OF SODIUM BICARB 50 MEQ IV GIVEN STAT, FIRST GIVEN @ 12;34, AND 1MG ATROPINE IV STAT GIVEN @ 12:38.
--- NOTE | 2018-07-18 12:32 | NUR ---
CLINICAL PHARMACY NOTE:VANCOMYCIN DOSING REQUEST FOR VANCOMYCIN DOSING ON 82 Y/O FEMALE 4'9" 98LBS FOR SEPSIS TEMP 98F BUN 14 SCR 0.8 WBC 7.1 (LABS FROM 07/17) START VANCOMYCIN 750MG Q24H ESTIMATED TROUGH 17. WILL CONTINUE TO MONITOR
[2018-07-18 12:47] LABS: ABG BASE EXCESS 19.5 mmol/L; ABG HCO3 42.4 mmol/L; ABG PCO2 41.3 mmHg (35.0-45.0); ABG PH 7.629 (7.350-7.450); ABG PO2 114.7 mmHg (75.0-100.0); ABG SITE RIGHT FEMORAL; COHb 1.5 % (0.5-1.5); MetHb 0.2 % (0.0-1.5); O2Hb 96.2 % (94.0-97.0)
[2018-07-18 12:50] LABS: IRON, SERUM 113 ug/dL (50-175)
[2018-07-18 13:07] LABS: ALANINE AMINOTRANSFERASE 167 U/L (14-59); ALKALINE PHOSPHATASE 70 U/L (50-136); ASPARTATE AMINOTRANSFERASE 269 U/L (15-37); BILIRUBIN,TOTAL 2.1 mg/dL (0.2-1.0); CHLORIDE 105 mmol/L (98-107); CREATININE 2.1 mg/dL (0.6-1.3); MAGNESIUM 3.7 mg/dL (1.8-2.4); PHOSPHOROUS 7.6 mg/dL (2.5-4.9); TOTAL PROTEIN, SERUM 5.7 g/dL (6.4-8.2); UREA NITROGEN, BLOOD 25 mg/dL (7-18)
[2018-07-18 13:09] LABS: CARBON DIOXIDE 10 mmol/L (21-32)
[2018-07-18 13:10] LABS: GLUCOSE 1 mg/dL (74-106); POTASSIUM 6.6 mmol/L (3.5-5.1)
[2018-07-18] MEDS ORDERED: DEXTROSE 50% 50 ML DISP.SYRIN ONE ×2 (13:13→13:17)
[2018-07-18 13:14] LABS: ABG BASE EXCESS -8.6 mmol/L; ABG HCO3 16.2 mmol/L; ABG PCO2 30.8 mmHg (35.0-45.0); ABG PO2 132.6 mmHg (75.0-100.0); ABG SITE RIGHT FEMORAL; ABG TOTAL HEMOGLOBIN 7.7 G/dL (12.0-16.0); COHb 1.5 % (0.5-1.5); MetHb 0.1 % (0.0-1.5); O2Hb 96.7 % (94.0-97.0); VENT MODE N/C
--- NOTE | 2018-07-18 13:14 | NUR ---
GAYLA BARKLEY ARRIVED, STARTED TO INSERT AN A-LINE ON RT GROIN, STILL ONGOING. BLOOD SUGAR CHECKED WITH ACCU CHECK GIVING LOW , LAB SHOWING 1MG/DL, D50 IV STAT GIVEN @13:19 AND 2ND DOSE GIVEN @ 13:20, BLOOD SUGAR RECHECKED @ 13:30 438MG/DL VIA ACCU CHECK
[2018-07-18 13:18] LABS: THYROID STIMULATING HORMONE 9.043 mIU/mL (0.358-3.740)
[2018-07-18] MEDS ORDERED: DEXTROSE 50% 50 ML DISP.SYRIN IV PRN (13:30)
[2018-07-18] MEDS ORDERED: INSULIN REGULAR, HUMAN 300 UNIT/3 ML VIAL SQ PRN (13:30)
[2018-07-18] MEDS ORDERED: VASOPRESSIN 50 UNIT in IV DEXTROSE 5% 500 ML IV PRN (13:45)
[2018-07-18] MEDS ORDERED: SODIUM BICARBONATE 8.4% 50 MEQ in IV D5 1/2 NS 1000 ML 1,000 ML IV PRN (13:45)
[2018-07-18] MEDS ORDERED: VANCOMYCIN IV 750 MG in IV DEXTROSE 5% 250 ML IV SCH (14:00)
[2018-07-18] MEDS ORDERED: PIPERACILLIN SODIUM/TAZOBACTAM 4.5 G in IV DEXTROSE 5% 50 ML IV SCH (14:00)
[2018-07-18] MEDS ORDERED: DEXTROSE 50% 50 ML DISP.SYRIN IV STA (14:07)
[2018-07-18] MEDS ORDERED: DEXTROSE 50% 50 ML DISP.SYRIN IV ONE (14:15)
[2018-07-18] MEDS: PHENYLEPHRINE IV 20 MG in IV DEXTROSE 5% 250 ML IV PRN ×2 (14:42→15:58)
[2018-07-18 14:49] LABS: ABG BASE EXCESS -16.3 mmol/L; ABG HCO3 9.3 mmol/L; ABG PCO2 21.6 mmHg (35.0-45.0); ABG PH 7.252 (7.350-7.450); ABG PO2 133.3 mmHg (75.0-100.0); ABG SITE A-Line; ABG TOTAL HEMOGLOBIN 7.2 G/dL (12.0-16.0); COHb 1.9 % (0.5-1.5); MetHb 0.3 % (0.0-1.5); O2Hb 96.3 % (94.0-97.0); VENT MODE Nasal Cannula
[2018-07-18] MEDS: NOREPINEPHRINE BITARTRATE 16 MG in IV DEXTROSE 5% 500 ML IV PRN ×2 (15:09→19:49)
[2018-07-18] MEDS: MEROPENEM 0.5 G in IV NORMAL SALINE 50 ML IV SCH (15:52)
[2018-07-18] MEDS: BLOOD SUGAR DIAGNOSTIC 1 EACH STRIP VI SCH ×4 (15:53→22:18)
--- NOTE | 2018-07-18 16:26 | NUR ---
PATIENT BECAME UNRESPONSIVE, BRADYCARDIA HR 37 BPM. COLD EXTREMITIES UNABLE TO OBTAIN A SPO2 , BP 51/28. CODE BLUE CALLED, CODE BLUE TEAM ARRIVED. PT INTUBATED WITH TUBE SIZE 7, LEVEL 21 PUT ON MV ON AC WITH FIO2 50%, TV 450, RR 20, PEEP 5. BLOOD SUGAR CHECKED VIA ACCU CHECK SHOWING HIGH, RECEIVED 5 NITS OF REGULAR INSULIN IV, ABGS DONE MULTIPLE TIMES, RECEIVED SODIUM BICARB IV TWICE. PLEASE REFER TO CODE BLUE SHEET FOR MEDICATIONS GIVEN DURING CODE BLUE. OGT INSERTED, CX-RAY AND KUB DONE.
--- NOTE | 2018-07-18 16:30 | NUR ---
Pt intubated with ETT 7.0 approx 24 at teeth.. Vent settings: A/C 20, Vt 450, PEEP +5, FiO2 50%.. Will continue to monitor..
[2018-07-18 16:36] LABS: ABG BASE EXCESS -23.5 mmol/L; ABG HCO3 5.7 mmol/L; ABG PCO2 23.2 mmHg (35.0-45.0); ABG PH 7.007 (7.350-7.450); ABG PO2 107.6 mmHg (75.0-100.0); ABG SITE A-Line; ABG TOTAL HEMOGLOBIN 7.1 G/dL (12.0-16.0); MetHb 0.7 % (0.0-1.5); O2Hb 92.1 % (94.0-97.0); VENT MODE Nasal Cannula
--- NOTE | 2018-07-18 16:45 | NUR ---
Post intubation x-ray, ETT pulled 3 cm to 21 at teeth
[2018-07-18 16:57] LABS: ABG BASE EXCESS -24.2 mmol/L; ABG HCO3 5.1 mmol/L; ABG PCO2 21.2 mmHg (35.0-45.0); ABG PH 6.997 (7.350-7.450); ABG PO2 261.5 mmHg (75.0-100.0); ABG SITE RIGHT FEMORAL; ABG TOTAL HEMOGLOBIN 7.1 G/dL (12.0-16.0); COHb 1.6 % (0.5-1.5); MetHb 0.4 % (0.0-1.5); O2Hb 97.7 % (94.0-97.0); VENT MODE VENT - A/C; VT, ABG 450 mL
[2018-07-18 17:05] LABS: BASOPHILS % (AUTO) 0.2 % (0.0-2.0); HEMATOCRIT 22.8 % (31.2-41.9); LYMPHOCYTES # (AUTO) 0.6 K/uL (20.0-40.0); LYMPHOCYTES % (AUTO) 3.6 % (20.5-51.5); MEAN CORPUSCULAR HGB CONC 30 g/dL (32.3-35.6); MEAN CORPUSCULAR VOLUME 112.7 fL (75.5-95.3); MONOCYTES # (AUTO) 1.2 K/uL (2.0-10.0); MONOCYTES % (AUTO) 7.6 % (0.0-11.0); NEUTROPHILS # (AUTO) 13.6 K/uL (1.8-8.9); NEUTROPHILS % (AUTO) 88.6 % (38.5-71.5); PLATELET COUNT (AUTO) 118 K/uL (179-408); WHITE BLOOD COUNT (AUTO) 15.4 K/uL (3.8-11.8)
[2018-07-18 17:12] LABS: CHLORIDE 97 mmol/L (98-107); CREATININE 2.3 mg/dL (0.6-1.3); MAGNESIUM 3.7 mg/dL (1.8-2.4); PHOSPHOROUS 7.8 mg/dL (2.5-4.9); POTASSIUM 4.4 mmol/L (3.5-5.1); UREA NITROGEN, BLOOD 26 mg/dL (7-18)
[2018-07-18 17:15] LABS: CARBON DIOXIDE 6 mmol/L (21-32); GLUCOSE 558 mg/dL (74-106); RED BLOOD CELL COUNT(AUTO) 2.02 MIL/uL (3.63-4.92)
[2018-07-18] MEDS ORDERED: PHENYLEPHRINE IV 80 MG in IV DEXTROSE 5% 250 ML IV PRN (17:15)
[2018-07-18 17:16] LABS: HEMOGLOBIN 6.9 g/dL (10.9-14.3)
[2018-07-18 17:29] LABS: BAND % (MANUAL) 13 % (0-10); LYMPHOCYTES % (MANUAL) 5 % (20-40); MONOCYTES % (MANUAL) 7 % (2-10); NEUTROPHILS % (MANUAL) 75 % (42-75)
[2018-07-18] MEDS ORDERED: ALBUTEROL SULFATE 2.5 MG/ 0.5 ML NEBU NEB STA (17:31)
[2018-07-18] MEDS ORDERED: ROCURONIUM BROMIDE 50 MG/5 ML VIAL IV ONE (17:43)
[2018-07-18] MEDS ORDERED: ETOMIDATE 20 MG/10 ML VIAL IV ONE (17:43)
[2018-07-18] MEDS ORDERED: LINEZOLID IV 600 MG in PREMIXED 1 EACH IV SCH (18:00)
--- NOTE | 2018-07-18 18:10 | NUR ---
RT INTERNAL JUGULAR DIALYSIS CATH INSERTED, PATIENTS FAMILY NOTIFIED, BLOOD CONSENT SIGNED ASLO.
[2018-07-18] MEDS: PHENYLEPHRINE IV 80 MG in IV DEXTROSE 5% 250 ML IV PRN ×2 (18:18→19:19)
--- NOTE | 2018-07-18 18:45 | NUR ---
DIALYSIS STARTED VIA RT JUGULAR LINE , PT IN STABLE CONDITION
--- NOTE | 2018-07-18 19:30 | NUR ---
Pt remains in critical condition, on 1:1 Nursing Care. Hemodialysis in progress. Intubated on vent, appears comfortable on current vent settings. On multiple vasoactive drips for hemodynamic support. Please see IV spreadsheet for titrations. Close monitoring in progress.
[2018-07-18] MEDS ORDERED: MICAFUNGIN SODIUM 100 MG in IV NORMAL SALINE 100 ML IV SCH (20:00)
[2018-07-18] MEDS ORDERED: PROPOFOL 100 ML IV PRN (20:00)
--- NOTE | 2018-07-18 20:00 | NUR ---
Daughters at bedside, updated with pt condition. Appreciative of care and information.
[2018-07-18] MEDS: IV NS 1000 ML 1,000 ML IV PRN (20:11)
--- NOTE | 2018-07-18 20:35 | NUR ---
Dialysis procedure completed. No fluid volume pulled out as per youth pastor. Pt's BP labile during procedure. Please see VS flowsheet for trends as well as IV spreadsheet for IV drip titrations.
--- NOTE | 2018-07-18 20:39 | NUR ---
RECEIVED PATIENT INTUBATED ON A RUBY VENTILATOR WITH THE FOLLOWING SETTINGS: AC 20, VT 450, PEEP +5, 50% FiO2. PATIENT IS INTUBATED WITH A SIZE 7.0 ET TUBE APPROX 21CM AT THE LIP. ET TUBE IS SECURED WITH THE ANCHOR FAST. VENTILATOR ALARMS CHECKED AND THEY ARE ON AND AUDIBLE. VENTILATOR IS PLUGGED IN THE RED EMERGENCY OUTLET. ORAL CARE DONE. HME WILL BE CHANGED LATER. SUCTIONED SMALL WHITE SECRETIONS. NO SOB NOTED AT THIS TIME. WILL CONTINUE TO MONITOR PATIENT.
[2018-07-18] MEDS ORDERED: MEROPENEM 0.5 G in IV NORMAL SALINE 50 ML IV SCH (22:00)
--- NOTE | 2018-07-18 22:20 | NUR ---
Dr. Hester informed of persistent high accuchek readings. New order for labs received and also change accuchek to q 4hr with mild insulin scale. This time, MD did not want insulin coverage due to pt had severe hypoglycemia for a lengthy period of time.
[2018-07-18 22:57] LABS: CARBON DIOXIDE 14 mmol/L (21-32); CHLORIDE 96 mmol/L (98-107); CREATININE 1.6 mg/dL (0.6-1.3); POTASSIUM 3.4 mmol/L (3.5-5.1); UREA NITROGEN, BLOOD 17 mg/dL (7-18)
[2018-07-18 23:01] LABS: BASOPHILS % (AUTO) 0.2 % (0.0-2.0); HEMATOCRIT 22.2 % (31.2-41.9); LYMPHOCYTES # (AUTO) 0.6 K/uL (20.0-40.0); LYMPHOCYTES % (AUTO) 3.4 % (20.5-51.5); MEAN CORPUSCULAR HEMOGLOBIN 34.4 uug (24.7-32.8); MEAN CORPUSCULAR HGB CONC 32 g/dL (32.3-35.6); MEAN CORPUSCULAR VOLUME 108.2 fL (75.5-95.3); MONOCYTES # (AUTO) 0.8 K/uL (2.0-10.0); NEUTROPHILS # (AUTO) 15.2 K/uL (1.8-8.9); NEUTROPHILS % (AUTO) 91.4 % (38.5-71.5); PLATELET COUNT (AUTO) 108 K/uL (179-408); WHITE BLOOD COUNT (AUTO) 16.7 K/uL (3.8-11.8)
[2018-07-18 23:08] LABS: ALKALINE PHOSPHATASE 65 U/L (50-136); BILIRUBIN,TOTAL 2.2 mg/dL (0.2-1.0); MAGNESIUM 2.3 mg/dL (1.8-2.4); PHOSPHOROUS 3.7 mg/dL (2.5-4.9); TOTAL PROTEIN, SERUM 4.8 g/dL (6.4-8.2)
[2018-07-18 23:12] LABS: GLUCOSE 411 mg/dL (74-106)
[2018-07-18 23:15] LABS: RED BLOOD CELL COUNT(AUTO) 2.05 MIL/uL (3.63-4.92)
[2018-07-18] MEDS ORDERED: D5 IV PRN (23:30)
[2018-07-18] MEDS ORDERED: 1/2 NS IV PRN (23:30)
[2018-07-18] MEDS ORDERED: HYDROCORTISONE SOD SUCCINATE 100 MG/2 ML VIAL IV SCH (23:30)
[2018-07-18] MEDS ORDERED: SODIUM ACETATE IV PRN (23:30)
[2018-07-18 23:35] LABS: ALANINE AMINOTRANSFERASE 3602 U/L (14-59); ASPARTATE AMINOTRANSFERASE 6343 U/L (15-37)
[2018-07-19] VITALS (12 sets, daily range): BP systolic 70–119; BP diastolic 29–100
--- NOTE | 2018-07-19 00:01 | NUR ---
Spoke with Dr.T. Hester about pt condition, VS/cardiac rhythm/ lab values/pressors. DNP stated to titrate down Javier drip first. Pt improved BP response to IV SoluCortef reported to him.
[2018-07-19 01:08] LABS: BAND % (MANUAL) 23 % (0-10); EOSINOPHILS % (MANUAL) 1 % (0-8); LYMPHOCYTES % (MANUAL) 4 % (20-40); METAMYELOCYTES % 3 % (0-1); MONOCYTES % (MANUAL) 4 % (2-10); MYELOCYTES % 2 % (0-0); NEUTROPHILS % (MANUAL) 63 % (42-75)
--- NOTE | 2018-07-19 01:23 | NUR ---
Dr. Hester notified of critical value of Lactic Acid 33.4. Order for a liter NS bolus carried out.
[2018-07-19] MEDS ORDERED: IV NS 1000 ML 1,000 ML IV ONE (01:45)
[2018-07-19] MEDS ORDERED: BLOOD SUGAR DIAGNOSTIC 1 EACH STRIP VI SCH ×3 (02:00→06:00)
[2018-07-19] MEDS ORDERED: INSULIN REGULAR, HUMAN 300 UNIT/3 ML VIAL SQ PRN (02:00)
[2018-07-19] MEDS: NOREPINEPHRINE BITARTRATE 16 MG in IV DEXTROSE 5% 500 ML IV PRN (02:20)
--- NOTE | 2018-07-19 02:30 | NUR ---
Noted monitor junctional 40's, extremely faint pulse per doppler. Lips cyanotic, skin cold to touch. Difficulty obtaining BP per Melia or cuff. Desat noted. RT summoned to bedside and came to check pt and vent. All IV drips continue to infuse at max. doses.
--- NOTE | 2018-07-19 02:46 | NUR ---
Code Blue called. Please see Code Blue Sheet.
--- NOTE | 2018-07-19 02:55 | NUR ---
Pt's daughters called, both did not poultry picker phone; messages left to call back the CCU.
[2018-07-19] MEDS ORDERED: CALCIUM CHLORIDE 1 GM/10 ML DISP.SYRIN IVP ONE (02:57)
[2018-07-19] MEDS: MEROPENEM 0.5 G in IV NORMAL SALINE 50 ML IV SCH (03:09)
[2018-07-19] MEDS: PHENYLEPHRINE IV 80 MG in IV DEXTROSE 5% 250 ML IV PRN (03:14)
--- NOTE | 2018-07-19 03:17 | NUR ---
AT BEDSIDE BEFORE KARLOS YARBROUGH CALLED. BEGAN BAGGING PT WITH AMBU BAG WHEN PULSE WAS NO LONGER PALPABLE AND SPO2 WAS UNOBTAINABLE. KARLOS YARBROUGH CALLED WHILE AT BEDSIDE. BAGGED PATIENT AND CPR PERFORMED BY , NAVEED HEARD AND JEANIE HEARD. KARLOS YARBROUGH WAS SUCCESSFUL. SPO2 READING AT 99%. PLACED PATIENT BACK ON A NEW VENTILATOR WITH THE SAME SETTINGS (AC 20, VT 450, +5, 100% FIO2). WILL CONTINUE TO MONITOR PATIENT.
--- NOTE | 2018-07-19 03:19 | NUR ---
Message to Dr. Hester about pt undergoing another Code Blue and pt update. No order noted.
--- NOTE | 2018-07-19 03:30 | NUR ---
Since after the Code Blue, perfusion very poor sometimes no BP or saturation register on monitor. Close monitoring on going. Externally paced with MA 80 and rate [address] Tejeda during Code Blue.
[2018-07-19] MEDS: DOPamine IV DRIP 400 MG/250ML 250 ML IV PRN ×2 (03:55→04:53)
--- NOTE | 2018-07-19 04:00 | NUR ---
Daughter Cindy called back. Pt condition report given. She will call sister Radha for update.
--- NOTE | 2018-07-19 04:35 | NUR ---
Message update to EULA Crook. No orders noted. Pt continues on full vent and cardiac support.
--- NOTE | 2018-07-19 05:15 | NUR ---
Unable to document some VS on VS trends due to bad perfusion. Please see flowsheet.
--- NOTE | 2018-07-19 05:25 | NUR ---
Noted external pacer with no capture despite increasing MA and heart rate. Spot check on monitor when external pacer turned off shows asystole. Pupils fixed and dilated at 4mm, no noted reflexes. No BP appreciated per Ailyn or cuff. Dr. Nikhil NAYAK MD called to evaluate pt.
[2018-07-19] MEDS: IV NS 1000 ML 1,000 ML IV PRN (05:27)
--- NOTE | 2018-07-19 05:33 | NUR ---
Dr. Tejeda here to evaluate pt. Pt pronounced. Spoke with daughter Cindy and requested to keep everything (full support on IV drips and vent support) in place until she comes in. RN pilot supervisor [place] made aware.
--- NOTE | 2018-07-19 05:38 | NUR ---
Dr. Juan Francisco Hester informed of pt pronouncement and critical cortisol level.
--- NOTE | 2018-07-19 05:55 | NUR ---
Daughter Cindy here and allowed to have personal time with pt. Nursing support offered with grieving daughter and showed sympathy.
--- NOTE | 2018-07-19 06:50 | NUR ---
Twyla Joshi, MEDIA ANALYST stated will come speak with family. Meanwhile, all cardiac and pulmonary support still ongoing per family's wishes.
--- NOTE | 2018-07-19 08:14 | NUR ---
RECEIVED AN 82 Y/O FEMALE PT ON BED, FAMILY AROUND, WAS DECLARED AROUND 05:33, PT REMAINS CONNECTED TO MONITOR SHOWING ASYSTOLE AND ON M.VENT, ALL DRIPS ATTACHED AND GOING, FAMILY IN DENIAL REFUSING TO DISCONNECT ANYTHING. LIVE SOTO NP WORKING WITH BOTH GAYLA BARKLEY AND GIANCARLO PEREYRA. SPOKE TO THE SON IN LAW AND EXPLAINED THE SITUATION. AWAITING THE ARRIVAL OF HER DAUGHTER FOR GIANCARLO MANCINI TO EXPLAIN TO HER.
--- NOTE | 2018-07-19 08:30 | NUR ---
IDEA MAN YARITZA, TALKED WITH FAMILY AND INFORMED THEM WITHIN AN HOUR PT MUST BE DISCONNECTED AND REMOVED FROM UNIT. RAY ALSO INFORMED THAT [facility] NOT INFORMED DUE TO FAMILY WISHES. INFORMED ME WE ARE OBLIGATED TO INFORM REGARDLESS. PHONE CALL MADE TO [facility] INFORMED THEM THAT PATIENTS DAUGHTER NICKI WHO WORKS IN THE MEDICAL FIELD REFUSED. CASE NUMBER [id number].
[2018-07-19] MEDS ORDERED: PANTOPRAZOLE SODIUM 40 MG VIAL IV SCH (09:00)
--- NOTE | 2018-07-19 09:30 | NUR ---
PATIENTS FAMILY SEEN BY GIANCARLO PEREYRA TALKED TOP THE FAMILY AND ALLOWED THEM TO STAY WITH PATIENT FOR ANOTHER HOUR, DIETETIC TECHNICIAN REGISTERED YARITZA INFORMED. ALL INVASIVE LINES KEPT DUE TO FAMILY UNDECIDABLE OF DOING A CORNERS/ AUTOPSY. M.VENT DISCONNECTED, ALL DRIPS REMOVED.
--- NOTE | 2018-07-19 10:30 | NUR ---
ORACLE IDENTITY MANAGEMENT CONSULTANT INFORMED, THAT THE PATIENT WAS GIVEN THE PERMISSION TO STAY UNTIL THE PRODUCTION TEAM ADVISOR IS HERE , TO DO THERE LAST GOODBYE.
--- NOTE | 2018-07-19 11:30 | NUR ---
THICKENER OPERATOR INFORMED FAMILY LEFT,[place] [facility] [place]
== END 2018-07-19 11:58 | disposition expired | DRG 871 ==
LOC: TELE 07:00 → TELE-TD 08:31 → CCU 11:30
PROVIDERS: ADMIT Nurse Practitioner Acute Care; ATTEND Registered Nurse
PROC: 5A1935Z Respiratory Ventilation, Less than 24 Consecutive Hours (ICD-10-PCS; principal; 2018-07-18)
PROC: 0BH17EZ Insertion of Endotracheal Airway into Trachea, Via Natural or Artificial Opening (ICD-10-PCS; 2018-07-18)
PROC: 5A12012 Performance of Cardiac Output, Single, Manual (ICD-10-PCS; 2018-07-18)
PROC: 05HM33Z Insertion of Infusion Device into Right Internal Jugular Vein, Percutaneous Approach (ICD-10-PCS; 2018-07-18)
PROC: 5A1D70Z Performance of Urinary Filtration, Intermittent, Less than 6 Hours Per Day (ICD-10-PCS; 2018-07-18)
PROC: 04HK33Z Insertion of Infusion Device into Right Femoral Artery, Percutaneous Approach (ICD-10-PCS; 2018-07-18)
PROC: 5A1223Z Performance of Cardiac Pacing, Continuous (ICD-10-PCS; 2018-07-19)
DX: A41.9 Sepsis, unspecified organism (principal); G93.41 Metabolic encephalopathy; J15.9 Unspecified bacterial pneumonia; J96.02 Acute respiratory failure with hypercapnia; J96.01 Acute respiratory failure with hypoxia; N17.0 Acute kidney failure with tubular necrosis; K72.00 Acute and subacute hepatic failure without coma; I50.33 Acute on chronic diastolic (congestive) heart failure; R65.21 Severe sepsis with septic shock; K85.90 Acute pancreatitis without necrosis or infection, unspecified; N39.0 Urinary tract infection, site not specified; K55.9 Vascular disorder of intestine, unspecified; K57.80 Diverticulitis of intestine, part unspecified, with perforation and abscess without bleeding; E87.2 Acidosis; K86.1 Other chronic pancreatitis; I82.622 Acute embolism and thrombosis of deep veins of left upper extremity; J98.11 Atelectasis; I44.2 Atrioventricular block, complete; E11.649 Type 2 diabetes mellitus with hypoglycemia without coma; Y92.230 Patient room in hospital as the place of occurrence of the external cause; E03.9 Hypothyroidism, unspecified; D63.8 Anemia in other chronic diseases classified elsewhere; I46.9 Cardiac arrest, cause unspecified; I48.0 Paroxysmal atrial fibrillation; Z79.01 Long term (current) use of anticoagulants; Z86.73 Personal history of transient ischemic attack (TIA), and cerebral infarction without residual deficits; K21.9 Gastro-esophageal reflux disease without esophagitis; Z86.718 Personal history of other venous thrombosis and embolism; I11.0 Hypertensive heart disease with heart failure; I49.5 Sick sinus syndrome; Z87.11 Personal history of peptic ulcer disease; I25.2 Old myocardial infarction; G89.29 Other chronic pain; E87.5 Hyperkalemia; T46.0X5A Adverse effect of cardiac-stimulant glycosides and drugs of similar action, initial encounter; T38.3X5A Adverse effect of insulin and oral hypoglycemic [antidiabetic] drugs, initial encounter
CPT/HCPCS: 36415; 36600; 70030-TC; 71045; 74018; 82533; 83550; 83605; 83735; 84100; 84443; 85025; 87040; 93005; 94002; 94003; 94640; 94664; A4663; J1265; J1720; J1815; J2020; J2185; J2248; J2370; J2543; J3370; J3490; J7030; J7040; J7060